=== PATIENT | male | born 1950 | race Caucasian/White ===

== ENCOUNTER 2016-10-13 04:37 | Inpatient (IN) ==
[2016-10-13] MEDS ORDERED: DUONEB (A & A) INH ONE (05:00)
[2016-10-13] MEDS ORDERED: ASPIRIN PO STA (05:02)
[2016-10-13] MEDS ORDERED: ALBUTEROL NEB INH ONE (05:03)
--- NOTE | 2016-10-13 05:10 | PROVIDER DOCUMENTATION ---
HPI-Respiratory General - General Chief Complaint: Shortness of Breath Stated Complaint: PNEUMONIA SX Time Seen by Provider: 10/13/16 04:54 Source: patient, family Allergies/Adverse Reactions: Patient Allergies Allergy/AdvReac Type Severity Reaction Status Date / Time No Known Allergies Allergy Verified 10/13/16 05:21 Home Medications: Home Medication List Medication Instructions Recorded Confirmed Last Taken Type Amlodipine Besylate 10 mg PO DAILY 08/15/13 10/13/16 10/12/16 History Fluoxetine HCl 2 cap PO DAILY 08/15/13 10/13/16 10/12/16 History Metoprolol Tartrate 12.5 mg PO BID 08/15/13 10/13/16 10/12/16 History Trazodone HCl 100 mg PO HS PRN 08/15/13 10/13/16 10/12/16 History Hydralazine HCl 25 mg PO TID 10/13/16 10/13/16 10/12/16 History - History of Present Illness-Resp Nature of Presenting Problem: pt states he has had a cough for about the last month that has been productive of sputum that has been clear to colored, however in the last week he has developed increasing SOB until tonight it became much worse. He has noticed that his breathing is worse laying down and better sitting up. He reports coughing up blood. No leg swelling. He reports right sided chest pain that radiates up to his shoulder and his neck nightly. No fever or chills. He quit smoking when he was 25 although he does chew tobacco. Review of Systems - Adult - REVIEW OF SYSTEMS - ADULT Constitutional: denies: chills, fever Eyes: denies: discharge Ears, Nose, Mouth & Throat: denies: ear pain, sinus problem, throat pain Cardiovascular: reports: chest pain, orthopnea. denies: edema, palpitations, syncope Respiratory: reports: cough, excessive sputum production, hemoptysis, shortness of breath, wheezing. denies: pleurisy Gastrointestinal: denies: abdominal pain, nausea, vomiting Genitourinary: reports: no symptoms reported Musculoskeletal: reports: no symptoms reported Integumentary: reports: no symptoms reported Neurological: reports: no symptoms reported Psychiatric: reports: no symptoms reported Endocrine: reports: no symptoms reported Hematologic/Lymphatic: reports: no symptoms reported Allergic/Immunologic: reports: no symptoms reported All Other Systems: Reviewed and Negative Past History - Adult - PAST MEDICAL HISTORY-ADULT Review of Records: reports: Old Records Reviewed, Nursing Assessment Review, Medications Reviewed, Social history reviewed & non-contributory. Major Childhood Illnesses: reports: denies history Cardiovascular: reports: HTN, hyperlipidemia Respiratory: reports: denies history Gastrointestinal: reports: denies history Obstetrical/Gynecological: reports: denies history Genitourinary: reports: kidney disease Musculoskeletal: reports: denies history Neurological: reports: denies history Psychiatric: reports: ptsd Endocrine/Immune: reports: cancer (skin) Other Conditions: reports: denies history - PRIOR SURGERIES/PROCEDURES Surgical/Procedure History: reports: reviewed, not pertinent - IMMUNIZATION STATUS Childhood Immunizations: See Nurse Assessment Flu Vaccine: See Nurse Assessment - FAMILY HISTORY Family History: reviewed, not pertinent - SOCIAL HISTORY Smoking: non-smoker, chew Living Situation: family Physical Exam-General - PHYSICAL EXAM-ADULT Initial Vital Signs Reviewed: Yes - CONSTITUTIONAL General Appearance: appears well, alert, mild distress - EYES Eyes: pink conjunctivae. negative: scleral icterus - HEAD, EARS, NOSE, MOUTH & THROAT HENMT: normocephalic/atraumatic, pharynx normal - NECK Neck: non-tender, full range of motion, supple, normal inspection - RESPIRATORY Respiratory: chest non-tender, no pleuratic chest pain, no respiratory distress , no accessory muscle use, wheezing. negative: lungs clear, normal breath sounds - CARDIOVASCULAR Cardiovascular: regular rate, rhythm, no edema, no murmur - GASTROINTESTINAL (ABDOMEN) Abdominal Exam: normal bowel sounds, non tender, soft, no organomegaly, no pulsatile mass - MUSCULOSKELETAL Back Exam: normal inspection, no CVA tenderness, no vertebral tenderness Extremity: non-tender, normal gait, normal inspection, no pedal edema, no calf tenderness - SKIN Integumentary: normal color, normal turgor, warm/dry - NEUROLOGIC Neurologic: grossly normal, no motor/sensory deficits - PSYCHIATRIC Psych/Mental Status: normal mood/affect, normal thought content, normal thought process, oriented x 3 Progress - PLAN OF CARE/RESULTS Progress/Plan/Lab Results: Vital Signs - 8 hr 10/13/16 05:09 Temperature 98.6 F Pulse Rate 83 Respiratory Rate 22 Blood Pressure 182/82 O2 Sat by Pulse Oximetry 82 L Laboratory Results - last 24 hr 10/13/16 10/13/16 10/13/16 05:00 05:00 05:00 WBC 14.17 H RBC 6.07 Hgb 16.0 Hct 49.5 MCV 81.5 MCH 26.4 L MCHC 32.3 L RDW Std Deviation 14.6 H Plt Count 248 MPV 11.3 H Immature Gran % (Auto) 0.4 Neut % (Auto) 78.7 H Lymph % (Auto) 12.7 L Morgan % (Auto) 7.2 Eos % (Auto) 0.7 Baso % (Auto) 0.3 Immature Gran # (Auto) 0.05 H Neut # (Auto) 11.16 H Lymph # (Auto) 1.80 Morgan # (Auto) 1.02 H Eos # (Auto) 0.10 Baso # (Auto) 0.04 PT INR PTT (Actin FS) D-Dimer 0.90 H Sodium 141 Potassium 4.4 Chloride 102 Carbon Dioxide 22 L Anion Gap 17 BUN 35 H Creatinine 2.7 H Estimated GFR/1.73 m2 24 BUN/Creatinine Ratio 13 Glucose 104 Calculated Osmolality 290 Calcium 9.1 Magnesium 2.1 Total Bilirubin 0.41 AST 20 ALT 14 Alkaline Phosphatase 80 Creatine Kinase 52 Troponin T Ceb-D-Tdfolmhltig Pept Total Protein 6.8 Albumin 3.9 Globulin 2.9 Albumin/Globulin Ratio 1.3 10/13/16 10/13/16 10/13/16 05:00 05:00 05:00 WBC RBC Hgb Hct MCV MCH MCHC RDW Std Deviation Plt Count MPV Immature Gran % (Auto) Neut % (Auto) Lymph % (Auto) Morgan % (Auto) Eos % (Auto) Baso % (Auto) Immature Gran # (Auto) Neut # (Auto) Lymph # (Auto) Morgan # (Auto) Eos # (Auto) Baso # (Auto) PT 11.0 INR 1.04 PTT (Actin FS) 26.8 D-Dimer Sodium Potassium Chloride Carbon Dioxide Anion Gap BUN Creatinine Estimated GFR/1.73 m2 BUN/Creatinine Ratio Glucose Calculated Osmolality Calcium Magnesium Total Bilirubin AST ALT Alkaline Phosphatase Creatine Kinase Troponin T 0.277 H Icv-P-Dpzqllbpwrf Pept 83340 H Total Protein Albumin Globulin Albumin/Globulin Ratio Orders Category Date Time Status Cardiac Monitoring DIRECTED Care 10/13/16 05:02 Active Oxygen Therapy- ED Nursing DIRECTED Care 10/13/16 05:02 Active Saline Loc NOW Care 10/13/16 05:02 Active CHEST-PORTABLE [RAD] Stat Exams 10/13/16 05:02 Completed CBC WITH ELECTRONIC DIFF [HEME] Stat Lab 10/13/16 05:00 Completed CK PROFILE [SP CHEM] Stat Lab 10/13/16 05:00 Completed COMPREHENSIVE METABOLIC PANEL [CHEM] Stat Lab 10/13/16 05:00 Completed D-DIMER [CHEM] Stat Lab 10/13/16 05:00 Completed MAGNESIUM [CHEM] Stat Lab 10/13/16 05:00 Completed PRO B-NATRIURETIC PEPTIDE Stat Lab 10/13/16 05:00 Completed PROTIME WITH INR [COAG] Stat Lab 10/13/16 05:00 Completed PTT [COAG] Stat Lab 10/13/16 05:00 Completed TROPONIN T Stat Lab 10/13/16 05:00 Completed Albuterol 2.5MG/Ipratrop 0.5MG [Duoneb (A & A)] Med 10/13/16 05:00 Discontinued 6 ml INH NOW ONE Albuterol [Albuterol Neb] Med 10/13/16 05:03 Discontinued 5 mg INH NOW ONE Aspirin Med 10/13/16 05:02 Discontinued 325 mg PO STAT STA Furosemide [Lasix] Med 10/13/16 05:18 Discontinued 40 mg IV NOW ONE Aerosol Treatments Routine Oth 10/13/16 05:00 Completed Aerosol Treatments Routine Oth 10/13/16 05:03 Completed Aerosol Treatments Stat Oth 10/13/16 05:00 Completed Aerosol Treatments Stat Oth 10/13/16 05:03 Completed BIPAP Stat Oth 10/13/16 05:18 Active EKG [EKG] Routine Ther 10/13/16 05:22 Draft Result Diagrams: 10/13/16 05:00 10/13/16 05:00 - REASSESSMENT Reassessment #1 Time Reassessed: 05:21 Status: improving - EKG 1 Time of EKG reading by physician:: 05:25 EKG Interpretation (*Must complete 3 of following elements*): Abnormal Rate: 74 Rhythm: sinus [place]: left QRS: LVH ST Wave: non-specific ST changes - XRAY 1 XRAY Study: Chest Impression: Abnormal (severe pulm edema) - CONSULTS/PCP/HOSPITALIST Notification #1 *Consult/PCP/Hospitalist*: [email or web address] Time Discussed: 06:20 Consult Disposition: Admit Departure - Departure Date of Disposition Decision: 10/13/16 Time of Disposition Decision: 06:20 DIAGNOSIS: Pneumonia Qualifiers: Pneumonia type: due to unspecified organism Laterality: bilateral Lung location : unspecified part of lung Qualified Code(s): J18.9 - Pneumonia, unspecified organism Congestive heart failure Qualifiers: Congestive heart failure type: unspecified congestive heart failure type Congestive heart failure chronicity: acute Qualified Code(s): I50.9 - Heart failure, unspecified Disposition: ADMITTED INPATIENT 09 Certified Medical Emergency: Emergent Condition: Critical Referrals and Follow-Ups: Kristan Patel [Primary Care Provider] - - Critical Care Note This patient required my direct & personal management of CC.: Yes Total Time (mins): 45 Critical Care Statement: This patient required my direct personal management to treat or rule out processes, the absence of which, could potentiallly result in sudden, clinically significant life or limb threatening deterioration. Attestation - Physician/ ARLEEN Attestation Patient care was provided by Advanced Practice Provider:: No The physician spent face to face time with patient:: Yes Advanced Practice Provider documentation review:: Supervising physician onsite and consulted in the evaluation and care of this patient. The physician did have a face to face encounter with the patient.
[2016-10-13] MEDS ORDERED: LASIX IV ONE (05:18)
[2016-10-13 05:23] LABS: MANUAL DIFF NEEDED? NO
[2016-10-13 05:30] LABS: BASO% 0.3 % (0.0-0.8); EOS% 0.7 % (0.0-10.0); HEMATOCRIT 49.5 % (42.0-52.0); IMM GRAN# 0.05 X1000 (0.0-0.04); IMM GRAN% 0.4 % (0.0-0.5); LYMPH% 12.7 % (20.5-51.1); MCH 26.4 PG (27-31); MCHC 32.3 g/dL (33-37); MCV 81.5 FL (81-99); MONO# 1.02 X1000 (0.11-0.59); MONO% 7.2 % (1.7-9.3); MPV 11.3 FL (7.4-10.4); NEUT% 78.7 % (42.2-75.2); PLT 248 X1000 (130-400); RBC 6.07 XMIL (4.7-6.1)
--- NOTE | 2016-10-13 05:39 | Diag Imaging Result Doc PS360 ---
EXAM: CHEST-PORTABLE HISTORY: sob TECHNIQUE: Portable AP COMPARISON: 08/17/2013 FINDINGS: There are diffuse bilateral infiltrates. Heart is mildly prominent. No pleural effusions identified. The lungs are well expanded. IMPRESSION: Bilateral infiltrates could represent congestive failure or pneumonia. Follow-up films recommended. Electronically signed by Bridger James 10/13/2016 5:36 AM
[2016-10-13 05:59] LABS: INR 1.04; PTT 26.8 Seconds (22.0-36.0)
[2016-10-13 06:06] LABS: ALBUMIN 3.9 g/dL (3.5-5.0); CALCIUM 9.1 mg/dL (8.8-10.2); MAGNESIUM 2.1 mg/dL (1.5-2.7); POTASSIUM 4.4 mmol/L (3.5-5.1); TOTAL BILIRUBIN 0.41 mg/dL (0.20-1.00); TOTAL PROTEIN 6.8 g/dL (6.3-8.3)
--- NOTE | 2016-10-13 06:09 | EKG Report ---
Test Performed on : 10/13/2016 05:22:59 AM Test Reason : Chest Pain Blood Pressure : / mmHG Vent. Rate : 074 BPM Atrial Rate : 074 BPM P-R Int : 152 ms QRS Dur : 072 ms QT Int : 452 ms P-R-T Axes : 050 -39 099 degrees QTc Int : 501 ms Normal sinus rhythm. Possible Left atrial enlargement Left axis deviation Left ventricular hypertrophy Inferior infarct , age undetermined ST \T\ T wave abnormality, consider anterolateral ischemia Prolonged QT Abnormal ECG No previous ECGs available Unconfirmed Result
[2016-10-13] MEDS ORDERED: ROCEPHIN 1 GM/NS 1 GM/50 ML IVPB IV ONE (06:24)
[2016-10-13] MEDS ORDERED: ZITHROMAX 500 MG/NS 500 MG/250 ML IVPB IV ONE (06:24)
[2016-10-13 07:44] LABS: ALLEN TEST YES; BE -4.1 mmoll (-3.0-3.0); BLOOD TYPE ARTERIAL; DRAW SITE R RADIAL; METHB 1.2 % (0.0-1.5); O2(CT) 20.9 mL/dL (15.0-23.0); PCO2(98.6) 41 mmHg (35-45); PO2(98.6) 64 mmHg (60-100); SAMPLE BLOOD; SAO2 96.3 % (95.0-100.0); pH(98.6) 7.33 (7.35-7.45)
[2016-10-13 07:45] LABS: MODALITY BI PAP
--- NOTE | 2016-10-13 08:32 | Diag Imaging Result Doc PS360 ---
EXAM: CT THORAX W/O CONTRAST HISTORY: pna, dense bilateral infiltrates TECHNIQUE: CT chest without contrast. Dose reduction protocol. COMPARISON: None. FINDINGS: There are small bilateral pleural effusions measuring approximately 2 cm posteriorly and inferiorly in the midline. The heart is mildly prominent. No thoracic aortic aneurysm. There are at least moderate coronary artery calcifications in the left anterior descending and circumflex arteries. There are small mediastinal lymph nodes. There are multifocal bilateral patchy infiltrates. There is also basilar atelectasis. No bronchiectasis. I do not identify a lung mass. Mild central vascular prominence. IMPRESSION: 1.Mild cardiomegaly with pleural effusions and pulmonary edema 2.Multifocal bilateral small patchy infiltrates 3.Moderate coronary artery calcifications Electronically signed by Bridger James 10/13/2016 8:29 AM
--- NOTE | 2016-10-13 09:42 | HISTORY AND PHYSICAL ---
PRIMARY CARE PHYSICIAN: [facility]. CHIEF COMPLAINT: Cough, hemoptysis. HISTORY OF PRESENT ILLNESS: Mr. Reed is a 65-year-old male with a history of hypertension, PTSD, CKD, who presents with 3 to 4 months of cough, which he has reported as dry up until about 1 week ago, when he started having sputum expectoration, fever, and chills, and yesterday started having mariano hemoptysis. He has also been reporting some pain in the right upper chest as well as right neck, radiating down to the right arm, which he believes is possible rotator cuff injury. He denies any overt ischemic-type chest pain, but he does report orthopnea, shortness of breath with exertion, and dry cough. He came to the ER today because of the mariano hemoptysis. He had a chest x-ray done, which showed dense bilateral infiltrates , consistent with pneumonia, his lab data was significant for leukocytosis and worsening renal failure, as well as a profoundly elevated proBNP and elevated troponin with normal CK. His EKG does show significant ST abnormalities in the anterior and lateral leads, possibly a Wellens' sign. It was also noted that when he got to the ER, he was hypoxic, requiring BiPAP therapy. As such, he is going to be admitted to the ICU for hypoxic respiratory failure, pneumonia, and possibly congestive heart failure. PAST MEDICAL HISTORY: 1. Hypertension. 2. Fatty tumor of the right kidney, status post nephrectomy. 3. CKD, baseline stage unknown. 4. PTSD. 5. Profoundly hard of hearing. PAST SURGICAL HISTORY: He has had a right nephrectomy, right retina repair, and skin cancer removal from his nose. SOCIAL HISTORY: The patient quit smoking some time ago when he was about 25, so 40 years ago. He denies alcohol or drug use. He is . His is at the bedside. He is a . FAMILY HISTORY: Mother from dementia-related disease. Father with congestive heart failure. It is also significant to note that he had a twin brother who from an [place] at 47 years old. REVIEW OF SYSTEMS: A 14-point review of systems was obtained and found to be negative with the exception of the HPI. ALLERGIES: No known drug allergies. HOME MEDICATIONS: Norvasc 10 mg daily, fluoxetine 40 mg daily, hydralazine 25 mg t.i.d., metoprolol tartrate 12.5 mg p.o. b.i.d., trazodone 100 mg p.o. at bedtime. PHYSICAL EXAMINATION: VITAL SIGNS: Blood pressure is 150/80, heart rate 88, respiratory rate is 19, O2 saturation 99% on BiPAP therapy, temperature is 98.6 degrees. GENERAL: This is a chronically ill and disheveled-appearing, 65-year-old male, lying in hospital bed in no acute distress. NEUROLOGIC: The patient is awake and alert. He follows commands. Exam is nonfocal. HEENT: Head is atraumatic, normocephalic. His pupils are equal, round, and reactive to light. Oral mucosa is moist. His trachea is midline. There is no JVD. CHEST: Dense crackles bilaterally. Diminished air entry throughout. CARDIOVASCULAR: Regular rate and rhythm. S1, S2 is noted. No appreciable murmur. GASTROINTESTINAL: Soft, nondistended, nontender. Bowel sounds are active. EXTREMITIES: No edema. Pulses 1+ bilaterally. DIAGNOSTIC DATA: Chest x-ray shows dense bilateral infiltrates. EKG shows sinus rhythm with T- wave inversion, possible Wellens' sign in the anterior and lateral leads. There is also electrocardiographic evidence of LVH. LABORATORY DATA: WBC 14.17, hemoglobin 16, hematocrit 49.5, platelet count is 248. PT 11, INR 1.04. D-dimer 0.9. ABG on 40% BiPAP: PH 7.33, CO2 of 41, O2 of 64, bicarb 21.6. Sodium 141, potassium 4.4, chloride 102, CO2 of 22, anion gap 17, BUN 35, creatinine 2.7, glucose 104. Magnesium 2.1. Total bilirubin 0.41, AST 20, ALT 14, alkaline phosphatase 80. CK 52, troponin 0.277. ProBNP 15,438. Albumin 3.9. TSH 3.24. ASSESSMENT AND PLAN: 1. Acute hypoxic respiratory failure, likely secondary to his bilateral pneumonia, but would also consider a combination of pneumonia and heart failure. He is on bilevel positive airway pressure and has been given intravenous diuresis in the emergency room. He is going to be transferred to the intensive care unit, where we will continue with bilevel positive airway pressure, antibiotics, breathing treatments, and aggressive pulmonary toilet. We will recheck a chest x-ray in the morning. 2. Community-acquired pneumonia. Blood cultures and lactic acid have been obtained. Antibiotics have appropriately been initiated, and will monitor his respiratory status closely. 3. Acute kidney injury on chronic kidney disease. Creatinine 2.7. We are going to consult Dr. Hoang, check urine electrolytes, and get a renal ultrasound given the fact that he has only got 1 kidney. 4. Elevated troponin and proBNP/questionable heart failure. The patient has abnormal electrocardiogram, profoundly elevated proBNP. Although he does have chronic kidney disease, we need to consider congestive heart failure. He has cardiomegaly on chest x -ray. We are going to check an echocardiogram, and trend his enzymes. He may well indeed need Cardiology consults, but if his enzymes are trending down or negative, we could probably defer this to outpatient. We will make sure he is on aspirin, and he will likely need statin as well. 5. Hemoptysis, likely secondary to his pneumonia. We are going to check a chest CT for better evaluation of the lung parenchyma, and continue treatment as outlined above. 6. Hypertension, chronic and stable. Continue his home medications. 7. Deep vein thrombosis prophylaxis will be provided with sequential compression devices and TEDs given his mariano hemoptysis. Further recommendations to follow. Dictated by ELIZABETH Garber for Alex Rollins MD cc: ELIZABETH Garber MD I have seen and examined the patient and I agree with the above evaluation and plan. Acute hypoxemic respiratory failure 2/2 to pneumonia. [facility]
[2016-10-13 10:45] LABS: URINE CULTURE NEEDED? NO; URINE MICRO REVIEW NEEDED? NO; URINE SOURCE CLEAN CATCH
[2016-10-13 10:53] LABS: BILIRUBIN URINE NEGATIVE (NEGATIVE); BLOOD URINE NEGATIVE (NEGATIVE); COLOR STRAW; GLUCOSE URINE NEGATIVE (NEGATIVE); LEUKOCYTES URINE NEGATIVE (NEGATIVE); NITRITE URINE NEGATIVE (NEGATIVE); PROTEIN URINE 50 mg/dL (NEGATIVE); SP GRAVITY URINE 1.006; TURBIDITY URINE CLEAR (CLEAR); UROBILINOGEN URINE NORMAL (NORMAL)
[2016-10-13 10:54] LABS: UR EPITHELIAL CELLS <10 /HPF (<10); URINE BACTERIA NEGATIVE /HPF; URINE RBC <10 /HPF (<10); URINE WBC <10 /HPF (<10)
[2016-10-13 11:00] LABS: UR CREAT RANDOM 31.5 mg/dL (14-26)
[2016-10-13] MEDS ORDERED: DESYREL PO PRN (12:02)
[2016-10-13] MEDS: DUONEB (A & A) INH SCH ×3 (12:02→21:30)
[2016-10-13] MEDS ORDERED: ROCEPHIN 1 GM/NS 1 GM/50 ML IVPB IV SCH (12:02)
[2016-10-13] MEDS ORDERED: DUONEB (A & A) INH PRN (12:02)
--- NOTE | 2016-10-13 12:54 | Diag Imaging Result Doc PS360 ---
EXAM: US RENAL 1 (LIMITED)-LEFT HISTORY: daryl on ckd TECHNIQUE: Renal ultrasound COMMENT: The right kidney is surgically absent. The left measures 11.9 x 6 x 6.4 cm. The urinary bladder is not distended. The prostate is somewhat prominent measuring 6.7 x 5.1 x 5.3 cm. There is a exophytic cyst in the lower pole of the left kidney measuring 2.5 cm in diameter. There is a parapelvic cyst in the lower portion of the kidney measuring 1.9 cm and a small cortical cyst is seen anteriorly measuring less than a centimeter in diameter. There is an upper pole cyst measuring 3.3 cm. The left renal cortex is hyperechoic. There is an exophytic hypoechoic nodule arising from the lower pole of the left kidney measuring 1.9 cm. This was probably the hyperdense structure seen on the CT of 04/09/2014 seen posteriorly over the lower pole. Follow-up CT may be desirable. IMPRESSION: Medical renal disease with multiple cysts and a nonspecific hypoechoic lesion over the lower pole as described above. Advise further evaluation with CT and/or MRI. Electronically signed by Mustapha Kelly 10/13/2016 12:51 PM
[2016-10-13] MEDS: APRESOLINE PO SCH ×3 (13:00→16:31)
[2016-10-13] MEDS: NORVASC PO SCH (13:29)
[2016-10-13] MEDS: LOPRESSOR PO SCH ×2 (13:29→22:24)
[2016-10-13] MEDS: PROZAC PO SCH (14:02)
[2016-10-13] MEDS: LASIX IV SCH (16:30)
--- NOTE | 2016-10-13 16:47 | CONSULTATION ---
DATE OF CONSULTATION: 10/13/2016 REASON FOR ADMISSION: Cough with hemoptysis and shortness of breath x3 weeks. REASON FOR CONSULTATION: Acute kidney injury on chronic kidney disease, stage 3. CONSULTING PHYSICIAN: Alex Rollins MD HISTORY OF PRESENT ILLNESS: Mr. Reed is a 65-year-old white male who has not been seen by our service in the past. He is a history of hypertension, posttraumatic stress disease, CKD stage 4, cough times 2-3 weeks, with new onset of hemoptysis with fever and chills since yesterday. He states that he is followed at the [facility]. He has a history of hypertension and congestive heart failure. He also has a history of a right nephrectomy from [address] Baig secondary to a tumor on his right kidney. He is followed at the [facility] and states that his last creatinine 3 weeks ago was 2.6. His creatinine today is 2.7 with an estimated GFR of 23%. Patient states that he has had no difficulty urinating. He has good stream. He denies any nausea, vomiting, or diarrhea, though he states he does get gagged when he is coughing for a long period of time. He has pain on the right side of his upper chest and right neck that radiates down the right arm. He thinks that this also secondary to having a rotator cuff injury in the past. He does report orthopnea with exertion. His chest x-ray indicates dense bilateral infiltrates consistent with bilateral pneumonia. He had a CT of the chest without contrast indicating cardiomegaly, pleural effusions with pulmonary edema, bilateral patchy infiltrates, small with coronary artery calcification noted. EKG did show significant ST abnormalities with an elevated troponin. Upon arrival to the [facility]'s Emergency Department, he was hypoxic with a low saturation, at which time he was placed on BiPAP therapy. He has now been converted over to a 50% Ventimask. Due to his hypoxia, bilateral pneumonia, and his creatinine, patient is being admitted to ICU with respiratory failure, pneumonia and possible congestive heart failure. He was already given Lasix 40 mg at 5 a.m. this morning. He has not been given any since. He states that he has not voided in the last several hours. 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 Hypertension. Chronic kidney disease stage 4. Baseline creatinine according to the patient and his is [facility] made of GFR of 23%. He is profoundly hard of hearing and defers to his for most questions. He does have PTSD. PREVIOUS SURGICAL HISTORY: Right nephrectomy 2010. Right retina repair. Skin cancer removal from his nose. SOCIAL HISTORY: He is . He quit smoking greater than 40 years. Denies any alcohol or illicit drug use. He is a and is followed by the [facility] with Dr. Theodora Patel. FAMILY HISTORY: Mother from dementia with related disease. Father had congestive heart failure. He has a twin brother who from an [place] at 47 years old. No renal disease in the family. CURRENT ALLERGIES: No known drug allergies. HOME MEDICATIONS: Norvasc. Fluoxetine. Hydralazine. Metoprolol tartrate. Trazodone. He does take Tylenol over the counter, states that he avoids NSAIDs. LABORATORY: Sodium is 141, potassium 4.4, chloride 102, CO2 22, BUN 35, creatinine 2.7, glucose 104. Anion gap is 17, calcium 9.1, albumin 3.9, magnesium 2.1. White count 14.17, hemoglobin 16, hematocrit 49.5, with a platelet count of 248,000. PT of 11, INR 1.04, PTT 268 , D-dimer 0.90. TSH 3.2. Positive troponin. Blood culture pending. Patient had urine electrolytes indicating a FENa score of 5.96%. IMAGING: Renal ultrasound indicates the right kidney is absent. Left kidney measures 11.9, with multiple renal cysts and hyperechoic lesion noted in the left lower pole. Chest x-ray on admission shows infiltrates with CHF versus pneumonia, and CT of the chest without contrast as indicated above. REVIEW OF SYSTEMS: Review of systems x10 with pertinent positives listed above in the HPI. PHYSICAL EXAMINATION: General: This is a 65-year-old white male. He is in no acute distress. Vital Signs: Temperature 98.6 degrees, blood pressure 146/87, heart rate 73, respirations 20. He is on 50% Ventimask. Recorded saturation of 96%. Skin: Warm and dry. He appears chronically ill. He is lying with the head of the bed elevated. HEENT: Normocephalic, atraumatic. Pupils equal, reactive to light. Conjunctivae is pale. Mucous membranes moist. Poor dentition. Patient is hard of hearing. Neck: Trachea is midline. No JVD. Cardiovascular : He is regular rate and rhythm on the monitor. No appreciable murmur or gallop. Lungs: He has crackles to the bilateral bases. He remains on 50% Ventimask. Equal excursion. Abdomen: Soft , nontender. Slightly distended. Positive bowel sounds. Genitourinary: Not inspected. Minimal void since admission. Extremities: No edema. No clubbing or cyanosis. Bilateral pulses. Neurological: Alert and oriented x3. ASSESSMENT AND PLAN: 1. Acute kidney injury. The patient is actually at his historical baseline according to the patient and his . Baseline creatinine of 2.6, estimated GFR of 23%. BUN is stable. FENa score indicates that patient is not dry. Renal ultrasound does indicate absent right kidney secondary to nephrectomy in 2009. We will recheck labs in the a.m. 2. Acute hypoxic respiratory failure. Patient continues with indications of bilateral pneumonia. He has been given Rocephin 1 g. No indications for renal dosing. He does continue with bilateral crackles. We will go ahead and dose him with Lasix 80 mg IV q.12 hours secondary to his renal status. We will continue to measure accurate urine output. 3. Electrolytes. These are stable. 4. Acid-base balance. This is stable with a mild anion gap acidosis secondary to his respiratory distress. 5. Anemia. Patient is in target. 6. Hemoptysis, more than likely secondary to his pneumonia. His INR is stable. Chest CT indicates bilateral pneumonia with some pleural effusions and pulmonary edema. 7. Hypertension. This remains stable. 8. Anemia. 9. Pulmonary edema. Again, patient remains on 50% Ventimask. Again, we will address his hypoxic respiratory failure with extra dose of Lasix to be given b.i.d. starting this evening. I would like to thank you for allowing us to follow with this patient. Dictated by ELIZABETH Castellanos for Zeke Hoang MD Data reviewed, discussed with Liana Jerome on 10/13/16. I agree with the above assessment and plan of care. cc: ELIZABETH Castellanos MD [facility]
[2016-10-14] MEDS: DUONEB (A & A) INH SCH ×4 (03:30→21:18)
--- NOTE | 2016-10-14 03:43 | ECHO REPORT ---
ORDER DATE: 10/13/2016 MEASUREMENTS: Left ventricular end-diastolic diameter 6.4, and systolic diameter 4.7. Posterior wall thickness 1.1, septal thickness 1.3, left atrium 3.8, aortic root 4.1. SUMMARY: 1. Technically difficult study due to limited acoustic window quality. 2. Aortic valve is trileaflet, and opens adequately on 2-dimensional images. Peak gradient across the aortic valve is less than 10 mmHg. The aortic root is mildly enlarged. Mitral, tricuspid, and pulmonic valves are without structural abnormality, with mild mitral regurgitation and trace tricuspid regurgitation. The estimated systolic PA pressure by Doppler is 30-35 mmHg. 3. Mild left ventricular enlargement, with mild concentric left hypertrophy is demonstrated. Estimated left ejection fraction is 35-40%. There is akinesis of the apical septum and apex. Left atrium is borderline enlarged. Right atrium and right ventricle are normal in size, with normal right ventricular systolic function. 4. No pericardial effusion. 5. Inferior vena cava not well-demonstrated. CONCLUSIONS: 1. Technically difficult study. 2. Mild mitral regurgitation. 3. Trace tricuspid regurgitation, with estimated systolic PA pressure 30-35 mmHg. 4. Mild left ventricular enlargement, with mild concentric left hypertrophy, and estimated left ejection fraction of 35-40%. 5. Akinesis of apical septum and apex of the left ventricle. 6. Borderline left atrial enlargement. 7. Mild aortic root enlargement. cc: MD Corwin Beatty CRNP
[2016-10-14] MEDS: LASIX IV SCH ×2 (03:45→16:25)
[2016-10-14 05:42] LABS: HEMATOCRIT 49.5 % (42.0-52.0); MCH 26.2 PG (27-31); MCHC 32.3 g/dL (33-37); MPV 11.3 FL (7.4-10.4); RBC 6.11 XMIL (4.7-6.1)
[2016-10-14 06:02] LABS: AGAP 17; ALBUMIN 3.8 g/dL (3.5-5.0); BUN 37 mg/dL (8-22); CALCIUM 9.1 mg/dL (8.8-10.2); CHLORIDE 97 mmol/L (98-107); COSMO 285; HDL 44 mg/dL (35-55); LDL 122 mg/dL; POTASSIUM 4.2 mmol/L (3.5-5.1); SODIUM 138 mmol/L (136-145); TCO2 24 mmol/L (25-35); TRIGLYCERIDES 124 mg/dL (39-160); VLDL 25 mg/dL
[2016-10-14] MEDS: NORVASC PO SCH (09:03)
[2016-10-14] MEDS: APRESOLINE PO SCH ×3 (09:03→17:17)
[2016-10-14] MEDS: LOPRESSOR PO SCH ×2 (09:03→20:42)
[2016-10-14] MEDS: PROZAC PO SCH (09:04)
[2016-10-14] MEDS ORDERED: LOVENOX SUBQ SCH (09:15)
[2016-10-14] MEDS: ZITHROMAX 500 MG/NS 500 MG/250 ML IVPB IV SCH (09:30)
[2016-10-14] MEDS: CRESTOR PO SCH (09:37)
--- NOTE | 2016-10-14 10:55 | PROGRESS NOTE ---
DATE: 10/14/2016 SUBJECTIVE: Today, Mr. Reed referred to be doing a lot better. Shortness of breath is improved, and he also denies any chest pain. Of note, Mr. Reed got admitted yesterday because of cough, shortness of breath, and also chest and cervical pain that radiates to the right hand intermittently especially on exertion. OBJECTIVE: Vital Signs: Blood pressure is 137/84, pulse of 67, respiration is 24. Temperature 98.5 degrees.General: Mr. Reed is a 65-year-old male. He is in bed and does not seem to be in any remarkable distress. HEENT: Mucosa is pink and moist. Anicteric. Acyanotic. Neck: Supple. No JVD. Chest: Good air entry bilaterally. There is a few bibasilar crepitations. Cardiovascular: Regular rate and rhythm. There is no murmurs no rubs, no gallops. Abdomen: Soft is distended but nontender. Bowel sounds seems slightly hypoactive. Extremities: No pedal edema. SLUMBER ROOM ATTENDANT: Patient is awake, alert, oriented x4. There is no focal neurological deficit except the patient is hard of hearing. LABORATORY DATA: WBC 13.10, hemoglobin is 16.0, platelet count of 225,000. Chemistry is reviewed. Sodium is 138, potassium is 4.3, chloride 97, bicarb is 24. Creatinine is 2.8. Troponins have been going and is now 0.565. IMAGING STUDIES: A chest x-ray which was done yesterday shows bilateral infiltrate could represent congestive failure or pneumonia. A CT scan of the chest done yesterday shows mild cardiomegaly with pleural effusions and pulmonary edema. Multifocal bilateral small patchy infiltrates. Moderate coronary calcifications. An echocardiogram which was done shows an ejection fraction of 35%-40%. Mild left ventricular enlargement and mild concentric at hypertrophic cardiomyopathy. There is hypokinesis of the apical septum and apex of the left ventricle. The renal ultrasound which was done also yesterday shows medical renal disease. An echocardiogram which was done yesterday shows sinus rhythm with left axis deviation and a poor progression of the R wave. There are some T-waves inversion in the lateral leads. ASSESSMENT: 1. Acute hypoxemic respiratory failure secondary to pulmonary edema and bilateral patchy infiltrate consistent with possible pneumonia. 2. Congestive heart failure with ejection fraction 35%-40% and also abnormal wall movement on echocardiogram which alludes to the possibility of underlying coronary artery disease. 3. Non-STEMI. Patient has atypical chest pain. EKG is abnormal and troponins have been going up. He has already been evaluated by Cardiology. There is a plan to do a left heart catheterization when his pulmonary status is improved. 4. Coronary chronic kidney disease, stage 4. I think this is probably progression of his kidney disease. In 2013, he had an EF of 1.6. He still makes adequate urine. Nephrology has been consulted. MEDICATIONS: 1. Amlodipine 10 mg daily. 2. Aspirin 81 mg daily. 3. Erythromycin 215. 4. Ceftriaxone. 1 g Q 24. 5. Lovenox 100 mg daily. 6. Lovenox 80 mg IV q.12. 7. Hydralazine 25 mg 3 times per day. 8. Metoprolol 12.5 b.i.d. 9. Crestor 40 mg daily. 10. In general, I think is relatively stable. He seems to be slowly improving from his lung symptoms which I think is a combination of congestive pulmonary edema from congestive heart failure with superimposed infectious disease. Will continue with the antibiotics. We will also continue with his heart medications. I think their long-term plan is to improve his pulmonary symptoms to the point where he will be able to tolerate the left heart catheterization. The patient is being followed by both Nephrology and Cardiology. cc: Alex Rollins MD MTDScott
[2016-10-14] MEDS: ROCEPHIN 1 GM in NS 50 ML IV SCH (13:43)
--- NOTE | 2016-10-14 14:18 | CONSULTATION ---
DATE OF CONSULTATION: 10/14/2016 HISTORY OF PRESENT ILLNESS: Mr. Shay Reed is a 65-year-old gentleman who is admitted with shortness of breath, cough, and hemoptysis. CT scan revealed pulmonary edema, pleural effusion, and patchy infiltrates. Patient has abnormal troponin and renal insufficiency. Cardiology was consulted. He also presented with having chest pain, right-sided with some radiation to the neck and down the right arm. He became more short of breath and came to the hospital and was admitted. He has been started on IV Lasix and IV antibiotics. The patient's states that he has had a stress test last year at the [facility] in [place] and was told the test was unremarkable. No previous cardiac history is known. Over the last 2 months he has noticed interscapular pain with shortness of breath on exertion and of late he had noticed some right-sided chest discomfort. He also has had left-sided chest discomfort. There are no palpitations. There is no dizziness or syncope. REVIEW OF SYSTEMS: A 14-point review of system was done.Respiratory system: As above. Cardiovascular system: As above. System: There is no dysuria or hematuria. Endocrine system: Stable. Central nervous system: No focal weakness to suggest CVA or TIA. PAST MEDICAL HISTORY: 1. Status post nephrectomy secondary to tumor. 2. Solitary kidney. 3. Chronic renal insufficiency stage 4; baseline creatinine 2.6, GFR 23%. 4. Hard of hearing. 5. Posttraumatic stress disorder. 6. Right retinal repair. 7. He quit smoking 40 years ago. 8. Hypertension. PRIMARY CARE PHYSICIAN: 1. He is followed by Dr. Patel at the [facility]. HOME MEDICATIONS: Include metoprolol 12.5 mg p.o. b.i.d., fluoxetine 2, trazodone 100, amlodipine 10, hydralazine 25 mg p.o. t.i.d. ALLERGIES: He is not known to be allergic to any medication. PHYSICAL EXAMINATION: Vital signs: Blood pressure was 137/84. Cardiovascular System: Normal jugular venous pressure. First and second heart sounds were heard. There is no S3 gallop. Respiratory System: Bibasilar inspiratory crepitations. Abdomen: Soft, nontender. There was no guarding or rigidity. Bowel sounds were heard. Central nervous system: Alert. Was moving as extremities. Detailed central nervous system examination not performed. Extremities: Peripheral pulses noted. No edema. LABORATORY EXAMINATION: Sodium 138, potassium 4.2, BUN 37, creatinine 2.8. Troponin baseline 0.271. Subsequent troponin 0.370, 0.565. Hematology: WBC 13.10, hemoglobin 16, hematocrit 49, platelet count of 225,000. CT scan of his chest revealed cardiomegaly with pleural effusions and pulmonary edema with multifocal bilateral patchy infiltrates, moderate coronary calcification in the left anterior descending and circumflex areas. Echocardiogram revealed ejection fraction of 35 to 40%. Akinesis of apical septum and the left ventricular apex. ASSESSMENT AND PLAN: Mr. Sahy Reed is a 65-year-old gentleman with a history of chronic renal insufficiency status post nephrectomy in 2009, hypertension, posttraumatic stress disorder, hard of hearing, is admitted with shortness of breath, cough, and pulmonary edema. Has also had hemoptysis. From a cardiac standpoint, the patient's said last year they had a stress test done at the [facility] in [place] and per her the stress test was unremarkable. He has been having interscapular exertion chest pain for the last 2-3 months. In addition, presented with chest pain and pulmonary edema as well. 1. Currently he is being diuresed with the Lasix 80 mg IV twice daily. He has been started on aspirin and his home medications of hydralazine and metoprolol. 2. Hypercholesterolemia. He is on Crestor 40 mg a day. 3. He has ongoing chest discomfort and his troponin has worsened. However, in the setting of renal insufficiency, this may or may not be a non-Q-wave myocardial infarction. Regardless, I suspect this is secondary to coronary artery disease, LV dysfunction, and we will plan for a left heart catheterization when he is euvolemic. 4. He has renal insufficiency. Dr. Hoang has been consulted. 5. Since his admission he has symptomatically improved. 6. He had an elevated white count and likely infiltrate/pneumonia may be coexistent and he has been started on ceftriaxone and Zithromax. I have not made any other changes to his medications. Thank you for the consult. We will follow hospital course. cc: Devante Gonsalves MD
--- NOTE | 2016-10-14 19:51 | PROGRESS NOTE ---
DATE: 10/14/2016 SUBJECTIVE: He is feeling somewhat better this morning, but he is still requiring high-flow oxygen using a mask. No nausea or vomiting. OBJECTIVE: Vital Signs: Blood pressure 137/78, heart rate 70, respiration 24, afebrile. Intake and output are incomplete. General: Elderly man sitting at 45 degrees in no distress. Skin: Warm and dry. Conjunctivae are pink. Pupils are equal. Oropharynx is dry with poor dentition. Neck: Supple. Trachea is midline. No jugular venous distention or hepatojugular reflux. Heart: Regular with S4 gallop. Lungs: Have equal breath sounds. No crackles or wheezes anteriorly. Abdomen: Soft, nontender. Bowel sounds are present. Extremities: Have no edema, clubbing, or cyanosis. LABORATORY DATA: Sodium 138, potassium 4.2, chloride 97, bicarbonate 24, BUN 37, creatinine 2.8. IMPRESSION: Chronic kidney disease. He has a solitary kidney with history of multiple renal cysts that are possibly simply related to chronic kidney disease as opposed to polycystic kidney disease. There is also a possible 1.9 cm lesion on the ultrasound which may need to be followed up. It is likely that his kidney function will not improved from his current level. He is therefore some risk if he is to undergo a left heart catheterization. Otherwise, he has no electrolyte or acid-base abnormalities that need to be addressed. We will follow. His medications have been reviewed and no changes are required at this time from my perspective. We are giving Lasix 80 mg b.i.d. and we will follow his response. cc: Zeke Hoang MD
[2016-10-14] MEDS: MIRALAX PO SCH (20:42)
[2016-10-15] MEDS: DUONEB (A & A) INH SCH ×4 (03:18→21:00)
[2016-10-15] MEDS: LASIX IV SCH (05:00)
[2016-10-15 06:39] LABS: HEMATOCRIT 51.2 % (42.0-52.0); HEMOGLOBIN 16.7 g/dL (14.0-18.0); MCH 26.3 PG (27-31); MCHC 32.6 g/dL (33-37); MCV 80.5 FL (81-99); MPV 11.4 FL (7.4-10.4); RBC 6.36 XMIL (4.7-6.1)
[2016-10-15 07:22] LABS: ALBUMIN 3.8 g/dL (3.5-5.0); CALCIUM 9.7 mg/dL (8.8-10.2); POTASSIUM 3.9 mmol/L (3.5-5.1)
[2016-10-15] MEDS: MIRALAX PO SCH ×2 (08:00→21:37)
[2016-10-15] MEDS: PROZAC PO SCH (08:01)
[2016-10-15] MEDS: ZITHROMAX 500 MG/NS 500 MG/250 ML IVPB IV SCH (08:01)
[2016-10-15] MEDS: NORVASC PO SCH (08:01)
[2016-10-15] MEDS: ASPIRIN PO SCH (08:01)
[2016-10-15] MEDS: CRESTOR PO SCH (08:02)
[2016-10-15] MEDS: LOPRESSOR PO SCH ×2 (08:02→21:37)
[2016-10-15] MEDS: APRESOLINE PO SCH ×3 (08:02→16:14)
[2016-10-15] MEDS ORDERED: LOVENOX SUBQ SCH (09:00)
--- NOTE | 2016-10-15 11:06 | PROGRESS NOTE ---
DATE: 10/15/2016 Today Mr. Reed refers to be doing a lot better. Breathing is improved and no more shortness of breath. No chest pain. OBJECTIVELY: Vitals: Blood pressure is 140/90, pulse of 71, respirations 23, temperature 98.7 degrees. General: Mr. Reed is a 65-year-old male. He is in bed, does not seem to be in any distress. HEENT: Mucosa is pink and moist. Anicteric. Acyanotic. Neck: Supple. Chest: Air entry is bilaterally reduced. There is some bilateral posterior crepitations. Cardiovascular: Regular rate and rhythm. There are no murmurs. Abdomen: Soft , nontender. Extremities: No pedal edema. HOT BREAD BAKER: Patient is awake, alert and oriented x4. No focal neurological deficit. LABORATORY DATA: WBC is down to 12.69. Hemoglobin is 16.7, platelet count of 255,000. Chemistry is reviewed. Creatinine is 2.8, which is pretty much stable since admission. Urine output of 3085. Patient has a negative balance of 2380. ASSESSMENT: 1. Acute hypoxemic respiratory failure on presentation, secondary to pulmonary edema and bilateral patchy infiltrate suggestive of possible pneumonia. clinically improving 2. Congestive heart failure. Ejection fraction of 35-40% with abnormal wall movement suggestive of possible underlying coronary artery disease. 3. Elevated troponins on admission likely due to non STEMI. 4. Chronic kidney disease. The creatinine continues to be relatively stable. Patient had adequate urine output 5. 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 So in general Mr. Reed is clinically stable. We are going to transfer him from the ICU to regular floor. We will continue with gentle diuresis and complete the course of the antibiotics. Will be pending further evaluation from Cardiology as to when the left heart catheterization will be done. cc: Alex Rollins MD MTDScott
[2016-10-15] MEDS: ROCEPHIN 1 GM in NS 50 ML IV SCH (13:19)
--- NOTE | 2016-10-15 13:58 | PROGRESS NOTE ---
DATE: 10/15/2016 SUBJECTIVE: He is feeling fine today. Shortness of breath is some better, and he is using nasal cannula. No nausea or vomiting. OBJECTIVE: Vital Signs: Blood pressure 112/71, heart rate 67, respirations 20, afebrile. Intake 1.8 L. Output 3.1 L. PHYSICAL EXAMINATION: No acute distress. Skin is warm and dry. Conjunctivae are pink. Neck veins are not distended. Heart is regular without gallops or murmurs. Lungs have equal breath sounds. No crackles or wheezes. Abdomen soft, nontender. Bowel sounds present. Extremities have no edema, clubbing, or cyanosis. IMPRESSION: 1. Chronic kidney disease, stage 4. Kidney function is unchanged. Medication review discloses no changes that are required. 2. Volume status. He is receiving Lasix 80 mg IV q.12 hours. He has diuresed nicely and does not really have evidence of pulmonary edema or volume overload on exam. He had a chest CT performed on 10/13/2016 which did describe pulmonary edema. I will change his dosing to 40 mg p.o. once daily. cc: Zeke Hoang MD
[2016-10-15] MEDS ORDERED: SODIUM BICARBONATE 8.4% 150 MEQ in D5W 1,000 ML IV SCH (20:00)
[2016-10-15] MEDS: MUCOMYST 20% PO SCH (21:00)
[2016-10-16] MEDS: DUONEB (A & A) INH SCH ×4 (03:18→15:41)
[2016-10-16 05:55] LABS: HEMOGLOBIN 15.8 g/dL (14.0-18.0); INR 1.07; MCH 27.1 PG (27-31); MCHC 32.9 g/dL (33-37); MCV 82.2 FL (81-99); MPV 10.7 FL (7.4-10.4); PROTIME 11.3 Seconds (9.2-11.7); RBC 5.84 XMIL (4.7-6.1)
[2016-10-16 06:03] LABS: ALBUMIN 3.3 g/dL (3.5-5.0); CALCIUM 8.8 mg/dL (8.8-10.2); POTASSIUM 4.1 mmol/L (3.5-5.1)
[2016-10-16] MEDS: MUCOMYST 20% PO SCH ×2 (07:33→13:55)
--- NOTE | 2016-10-16 08:31 | Diag Imaging Result Doc PS360 ---
EXAM: CHEST-2 VIEWS HISTORY: dyspnea TECHNIQUE: 10/13/2016 COMPARISON: None. FINDINGS: Interval clearing of the bilateral infiltrates. There are only tiny infiltrates which remain posteriorly in the lower lobes. The heart is not enlarged. The vessels are not distended. No pleural effusions. IMPRESSION: Marked interval improvement. Electronically signed by Bridger James 10/16/2016 8:29 AM
[2016-10-16] MEDS ORDERED: LASIX PO SCH (09:00)
[2016-10-16] MEDS ORDERED: MUCOMYST 20% PO ONE (09:04)
[2016-10-16] MEDS: ZITHROMAX 500 MG/NS 500 MG/250 ML IVPB IV SCH (09:30)
[2016-10-16] MEDS: LOPRESSOR PO SCH (09:32)
[2016-10-16] MEDS ORDERED: HEPARIN 1000 UNITS/NS 2,000 UNIT/1,000 ML IV.SOLN ONE (10:53)
--- NOTE | 2016-10-16 11:27 | PROGRESS NOTE ---
DATE: 10/16/2016 SUBJECTIVE: He is awaiting left heart catheterization today. No pain. No shortness of breath. OBJECTIVE: Vital Signs: Blood pressure 133/87, heart rate 71, respirations 17, afebrile. General: He is in no acute distress. Skin: Warm and dry. Eyes: Conjunctivae are pink. Neck: Neck veins are not appreciated. Heart: Regular without gallops. Lungs: Have equal breath sounds. No crackles. Abdomen: Soft, nontender. Bowel sounds present. Extremities: Have no edema, clubbing or cyanosis. IMPRESSION: 1. Chronic kidney disease stage IV. At baseline. He was counseled again regarding the risk of intravenous contrast related to left heart catheterization. He has received Mucomyst and intravenous bicarbonate. We will observe his renal function following his procedure. 2. Hypertension in target. cc: Zeke Hoang MD
[2016-10-16] MEDS ORDERED: ANESTHESIA PB SET 88 IN 5742 ONE (11:49)
[2016-10-16] MEDS ORDERED: DEMEROL ONE (11:49)
[2016-10-16] MEDS ORDERED: NS 1,000 ML ONE (11:49)
[2016-10-16] MEDS ORDERED: NITROGLYCERIN ONE (11:49)
[2016-10-16] MEDS ORDERED: VERSED ONE (11:49)
[2016-10-16] MEDS ORDERED: MAALOX PLUS LIQUID PO PRN (13:22)
[2016-10-16] MEDS: APRESOLINE PO SCH ×3 (13:53→17:03)
[2016-10-16] MEDS: ASPIRIN PO SCH (13:54)
[2016-10-16] MEDS: NORVASC PO SCH (13:54)
[2016-10-16] MEDS: PROZAC PO SCH (13:54)
[2016-10-16] MEDS: CRESTOR PO SCH (13:54)
[2016-10-16] MEDS: MIRALAX PO SCH (13:55)
[2016-10-16] MEDS: ROCEPHIN 1 GM in NS 50 ML IV SCH (13:57)
[2016-10-16] MEDS ORDERED: SODIUM BICARBONATE 8.4% 150 MEQ in D5W 1,000 ML IV SCH (14:00)
--- NOTE | 2016-10-16 14:20 | CARDIAC CATH REPORT ---
DATE: 10/16/2016 PROCEDURES PERFORMED: 1. Left heart catheterization. 2. Selective coronary angiogram. 3. Opacification of right femoral artery. There was no LV gram nor any deployment of Angio-Seal device. HISTORY: This is a 65-year-old male presenting with increasing dyspnea, acute pulmonary edema, positive troponin levels, abnormal EKG. All of that suggested coronary artery disease. Echocardiogram showed wall motion abnormality that was suspicious for coronary artery disease. After extensive discussion with the patient and the family, cardiac catheterization was recommended, and because of the history of chronic kidney disease and single kidney, he was prepared with IV bicarbonate and Mucomyst. The benefit, risks and complications were discussed. He consented for the procedure. DESCRIPTION OF PROCEDURE: The patient came into the cardiac dentures lab technician in the fasting state. The right groin was prepped and draped in sterile fashion and anesthetized with lidocaine 1%. A 6- Wolof sheath was inserted in the right femoral artery by following the modified Seldinger technique. Using 6-Wolof 4 left and right Chivo catheters, the left and right coronary arteries were sequentially opacified in multiple projections. Then using the right Chivo catheter, the aortic valve was negotiated. Left ventricular pressure was determined. Left ventriculogram was not performed. Then the catheter was pulled back, the sheath was flushed. The right femoral artery was opacified; however, the insertion of the catheter was in the superficial femoral artery; therefore, we felt that it was probably best to remove the sheath manually. Hemostasis was accomplished with hand compression, and the patient tolerated the procedure well. SUMMARY OF HEMODYNAMIC FINDINGS: Central aortic pressure was 116/69, left ventricular pressure 114/8. LVEDP is normal. SUMMARY OF ANGIOGRAPHIC FINDINGS: 1. Left main coronary artery: This vessel appears to be anatomically normal. It divides into the LAD and circumflex. 2. Left anterior descending coronary artery: This vessel shows an ostial stenosis of 95% to 99%. Thereafter, the LAD gives rise to several diagonal branches, at least 3. They are small with suggestion of some mild diffuse disease in the most proximal one. After the third diagonal, the LAD is completely occluded. The apical portion of the LAD is visualized through an ipsicollateral vessel. 3. Circumflex coronary artery: The circumflex coronary artery is a nondominant system. It has proximally a high lateral branch or ramus intermedius type of branch that has a diffuse disease in the order of 60% that is very small. Thereafter it gives rise to a tiny lateral vessel. Then the circumflex shows an area of plaque of about 30% to 40%. It gives rise to a tiny AV branch and more distally divides into 2 obtuse marginal vessels that appear to be anatomically free of obstruction. 4. Right coronary artery: The right coronary artery is a large dominant system and shows mild diffuse plaque in the order of 30% proximally and in its midsection. It gives rise to sinus wilber branch and the conus branch. Distally there is mild plaque, no more than 20%, and gives rise to posterior descending branch and a posterolateral vessel which in its most terminal bifurcation shows an area of stenosis of about 75% to 80%. At that level, the vessel is very tiny and very distal. LEFT VENTRICULOGRAM: Not performed in this case. RIGHT FEMORAL ARTERY OPACIFICATION: The right femoral artery was opacified, and unfortunately the catheter entered the superficial vessel; therefore, Angio-Seal device was not deployed. CONCLUSIONS: 1. Normal left ventricular hemodynamics. 2. Severe coronary artery disease. Severe stenosis of the proximal ostial LAD and a complete occlusion of the distal LAD. The midsegment of the vessel appears to be at jeopardy because there are several septal and 3 diagonal branches that take off from the stenotic segment. The circumflex and the right coronary artery showed diffuse disease of mild to moderate degree. No critical lesion noted there. 3. Unremarkable right femoral artery. There is no evidence of aortic stenosis. RECOMMENDATIONS: Based on these findings, the patient will be advised to consider pursuing revascularization of at least the proximal segment of the LAD. We will send the patient for a second opinion to [facility]'s interventional group. Dr. Gonsalves will follow him at the office. Thank you for the opportunity to participate in his evaluation. cc: Vinayak Fisher MD
[2016-10-16 15:24] VITALS: BP 128/74
--- NOTE | 2016-10-16 16:04 | PROGRESS NOTE ---
DATE: 10/16/2016 SUBJECTIVE: Today, Mr. Reed refers to be relatively fine. Has no cough. Shortness of breath has improved. Just finished the left heart catheterization. OBJECTIVELY: Vitals: Blood pressure is 128/74, pulse 68, respirations 18, temperature is 98. General: Mr. Reed is a 65-year-old male. He is in bed. He did not seem to be in any distress. HEENT: Mucosa is pink and moist. Anicteric. Acyanotic. Neck: Supple. Chest: Air entry is slightly bilaterally reduced, especially to the posterior bases, few crepitations. Cardiovascular: Regular rate and rhythm. There are no murmurs, no rubs, no gallops. Abdomen: Soft, nontender. There is no hepatosplenomegaly. Extremities: No pedal edema. RESISTOR WINDER: Patient is awake, alert and oriented x4. No focal neurological deficit. LABORATORY DATA: WBC 10.97, hemoglobin is 15.8, platelet count is 219. Chemistry is reviewed, unremarkable except for creatinine which is 2.6. Magnesium is 2.2. Left heart catheterization report shows severe coronary artery disease. Severe stenosis of the proximal ostial LAD and complete occlusion of the distal LAD. ASSESSMENT: 1. Acute hypoxemic respiratory failure on presentation, secondary to pulmonary edema from congestive heart failure. 2. Congestive heart failure. Ejection fraction 35-40% with abnormal movement suggestive of coronary artery disease. 3. Non-ST elevation myocardial infarction. Left heart catheterization consistent with severe coronary artery disease with ostial stenosis of the left anterior descending of about 90% and total occlusion of the distal left anterior descending. There is an arrangement from Cardiology standpoint for patient to be transferred to [place]. 4. Chronic kidney disease stage 4. The patient is making adequate urine. 5. 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 PLAN: So, in general, Mr. Reed is clinically stable. We are going to discontinue the antibiotics since we do not think he has pneumonia. We will continue with the current gentle hydration for prophylaxis for contrast induced nephropathy. There is an arrangement for the patient to be transferred to [place] for revascularization evaluation. cc: Alex Rollins MD
--- NOTE | 2016-10-18 21:11 | DISCHARGE SUMMARY ---
ADMISSION DATE: 10/12/2016 DISCHARGE DATE: 10/16/2016 DISPOSITION: [facility]. CONSULTATION DURING THIS ADMISSION: 1. Cardiology was consulted. Patient was seen by Devante Gonsalves MD. 2. Nephrology was consulted. Patient was seen by Zeke Hoang MD. IMAGING STUDIES OF SIGNIFICANCE: 1. A CT scan of the chest was done on presentation which shows cardiomegaly with pleural effusions and pulmonary edema. Multifocal bilateral small patchy infiltrates. Moderate coronary artery calcifications. 2. An echocardiogram was done which showed ejection fraction of 35-40% with akinesis of apical septum and apex of the left ventricle. 3. A left heart catheterization was done which showed severe stenosis of proximal posterior LAD and a complete occlusion of the distal LAD. ADMISSION DIAGNOSES: 1. Acute hypoxemic respiratory failure. 2. Community-acquired pneumonia. 3. Acute on chronic kidney problem. 4. Troponin elevations. DIAGNOSIS AT THE TIME OF DISCHARGE: 1. Acute hypoxemic respiratory failure on presentation, secondary to pulmonary edema from congestive heart failure. 2. Systolic congestive heart failure. Ejection fraction of 35 to 40% secondary to coronary artery disease. 3. [id number] myocardial infarction with left heart catheterization showing severe coronary artery disease with ostial stenosis of the left anterior descending artery of about 90% and total occlusion of the distal left anterior descending. 4. Chronic kidney disease stage 4. 5. 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 PRESENTING COMPLAINT: Cough. Hemoptysis. HISTORY OF PRESENT COMPLAINT: Mr. Reed is a 65-year-old male with multiple comorbidities including CKD, hypertension, solitary kidney who presented to the emergency department because of cough, hemoptysis and shortness of breath. The patient was evaluated. A CT scan was done initially which shows some multifocal infiltrates. Patient was initially treated for multifocal pneumonia as well as pulmonary edema. Troponins were elevated so we started to work him up for possible coronary artery disease. HOSPITAL COURSE: The patient was initially admitted to the ICU. Got stabilized. Shortness of breath improved with diuretic therapy and Cardiology was consulted and Nephrology was consulted. During the workup, it was found that the patient has severe coronary artery disease which needed some intervention, so a decision was made by Cardiology to transfer the patient to [place] where he will follow with further medical care. The patient was transferred subsequently to [facility] in [place] in a stable condition. TIME SPENT FOR DISCHARGE: 37 minutes. cc: Alex Rollins MD
== END 2016-10-16 18:00 | disposition short-term general hospital (02) ==
LOC: ED 04:37 → EDIPHOLD 09:42 → ICU 23:09 → 4N 10-15 16:54 → 3S 10-16 13:08
PROVIDERS: ATTEND Internal Medicine

== ENCOUNTER 2019-06-03 16:29 | Inpatient (IN) ==
[2019-06-03] MEDS ORDERED: CALCIUM CHLORIDE ONE (17:30)
[2019-06-03] MEDS ORDERED: SODIUM BICARBONATE 8.4% ONE (17:30)
[2019-06-03] MEDS ORDERED: EPINEPHRINE SYRINGE ONE (17:30)
[2019-06-03] MEDS ORDERED: ATROPINE SYRINGE ONE (17:30)
--- NOTE | 2019-06-03 17:35 | Diag Imaging Result Doc PS360 ---
EXAM: CHEST-1 VIEW 06/03/2019 HISTORY: sepsis protocol TECHNIQUE: AP portable upright at 1718 COMMENT: There is diffuse alveolar opacity bilaterally. There is a pacemaker on the left. The heart size is enlarged. IMPRESSION: Pulmonary edema/ARDS. The possibility of pneumonia cannot be excluded. Electronically signed by Mustapha Kelly 06/03/2019 5:32 PM
[2019-06-03] MEDS ORDERED: NS 1,000 ML ONE ×3 (17:45→21:09)
[2019-06-03] MEDS: EPINEPHRINE 4 MG in NS 250 ML IV SCH (18:12)
[2019-06-03] MEDS ORDERED: DOPAMINE 800 MG/D5W 800 MG/500 ML IV.SOLN ONE (18:16)
[2019-06-03] MEDS ORDERED: ASPIRIN ONE (18:17)
[2019-06-03] MEDS: DOPAMINE 800 MG/D5W 800 MG/500 ML IV.SOLN IV SCH ×2 (18:23→21:49)
[2019-06-03 18:50] LABS: URINE SOURCE CLEAN CATCH
[2019-06-03 18:56] LABS: BILIRUBIN URINE NEGATIVE (NEGATIVE); BLOOD URINE MODERATE (NEGATIVE); COLOR YELLOW; GLUCOSE URINE NEGATIVE (NEGATIVE); KETONE URINE NEGATIVE (NEGATIVE); LEUKOCYTES URINE SMALL (NEGATIVE); NITRITE URINE NEGATIVE (NEGATIVE); PH URINE 5.5; PROTEIN URINE 300 mg/dL (NEGATIVE); SP GRAVITY URINE 1.019; TURBIDITY URINE HAZY (CLEAR); UROBILINOGEN URINE NORMAL (NORMAL)
[2019-06-03 18:57] LABS: UR EPITHELIAL CELLS >10 /HPF (<10); URINE BACTERIA NEGATIVE /HPF; URINE RBC TNTC /HPF (<10); URINE WBC 20-40 /HPF (<10)
[2019-06-03 19:05] LABS: BASO# 0.11 X1000 (0.0-0.2); BASO% 0.8 % (0.0-0.8); EOS# 0.08 X1000 (0.0-0.7); EOS% 0.6 % (0.0-10.0); HEMOGLOBIN 11.3 g/dL (14.0-18.0); IMM GRAN# 0.51 X1000 (0.0-0.04); IMM GRAN% 3.8 % (0.0-0.5); LYMPH# 2.74 X1000 (1.2-3.4); LYMPH% 20.2 % (20.5-51.1); MCH 23.4 PG (27-31); MCV 80.9 FL (81-99); MONO# 0.72 X1000 (0.11-0.59); MONO% 5.3 % (1.7-9.3); NEUT# 9.41 X1000 (1.4-6.5); NEUT% 69.3 % (42.2-75.2); PLT 268 X1000 (130-400); RBC 4.82 XMIL (4.7-6.1); WBC 13.57 X1000 (4.8-10.8)
[2019-06-03 19:12] LABS: INR 1.49; PROTIME 18.3 Seconds (11.0-16.0)
[2019-06-03 19:13] LABS: PTT 46.2 Seconds (22.3-41.8)
--- NOTE | 2019-06-03 19:29 | Diag Imaging Result Doc PS360 ---
EXAM: CHEST/ABD TUBE PLACEMENT 06/03/2019 HISTORY: tube TECHNIQUE: AP portable at 1906 COMMENT: There is an endotracheal tube with its tip at thoracic inlet and an NG tube with its tip below the diaphragm. There is a pleural effusion on the right. There is alveolar opacity bilaterally as there was on the previous study at 1718. IMPRESSION: NG tube and endotracheal tube as described. Electronically signed by Mustapha Kelly 06/03/2019 7:27 PM
[2019-06-03 19:32] LABS: ALB/GLOB RATIO 1.9; ALBUMIN 3.5 g/dL (3.5-5.0); CALCIUM 8.3 mg/dL (8.8-10.2); CREATININE 3.9 mg/dL (0.7-1.2); POTASSIUM 4.6 mmol/L (3.5-5.1); TOTAL BILIRUBIN 0.64 mg/dL (0.20-1.00); TOTAL PROTEIN 5.3 g/dL (6.3-8.3)
[2019-06-03 19:38] LABS: BANDS 4 % (0-1); LYMPHS 32 % (21-51); SEGS 64 % (42-75)
[2019-06-03 19:39] LABS: POIKILOCYTOSIS 1+
[2019-06-03 19:40] LABS: HYPOCHROM 2+
[2019-06-03 21:08] LABS: ALLEN TEST YES; BLOOD TYPE ARTERIAL; METHB 1.3 % (0.0-1.5); O2(CT) 19.4 mL/dL (15.0-23.0); O2HB 96.6 % (95.0-99.0); PCO2(98.6) 43 mmHg (35-45); PO2(98.6) 262 mmHg (60-100); SAMPLE BLOOD; SRATE 20 BPM; THB 13.8 g/dL (11.5-17.4); TVOL 600 mL
[2019-06-03 21:10] LABS: pH(98.6) 7.14 (7.35-7.45)
[2019-06-03 21:11] LABS: MODALITY VENTILATOR
[2019-06-03] MEDS ORDERED: ZOSYN 3.375 GM in NS 50 ML IV ONE (21:50)
[2019-06-03] MEDS ORDERED: VANCOMYCIN IV PER PHARMACY MISC SCH (22:45)
[2019-06-03] MEDS ORDERED: LASIX IV ONE (23:01)
[2019-06-03 23:19] LABS: ALLEN TEST YES; BE -14.1 mmoll (-3.0-3.0); BLOOD TYPE ARTERIAL; HCO3-(ACT) 13.9 mmoll (20.0-26.0); METHB 1.1 % (0.0-1.5); O2(CT) 18.3 mL/dL (15.0-23.0); O2HB 94.7 % (95.0-99.0); PCO2(98.6) 46 mmHg (35-45); PO2(98.6) 93 mmHg (60-100); SAMPLE BLOOD; SAO2 97.6 % (95.0-100.0); SRATE 20 BPM; THB 13.7 g/dL (11.5-17.4); TVOL 600 mL
[2019-06-03 23:22] LABS: MODALITY VENTILATOR; pH(98.6) 7.12 (7.35-7.45)
[2019-06-03] MEDS ORDERED: ZOFRAN IV PRN (23:45)
[2019-06-04] MEDS ORDERED: NS 1,000 ML IV SCH
[2019-06-04] MEDS ORDERED: VANCOMYCIN 1,400 MG in NS 250 ML IV ONE (00:30)
[2019-06-04] MEDS: DOPAMINE 800 MG/D5W 800 MG/500 ML IV.SOLN IV SCH ×2 (01:06→04:22)
[2019-06-04] MEDS: HEPARIN SUBQ SCH ×3 (01:41→15:39)
--- NOTE | 2019-06-04 02:29 | HISTORY AND PHYSICAL ---
CHIEF COMPLAINT: Chest pain. HISTORY OF PRESENT ILLNESS: Mr. Reed is an unfortunate 68-year-old male who comes into the emergency room with the complaint of chest pain. Apparently, he very quickly lost his pulse and was coded in the emergency room and subsequently intubated so no real H and P was obtained. 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 Chest x- ray appeared to be pulmonary edema versus ARDS. The patient is having lactic acidosis and has probable anoxic brain injury, according to the CT of his head. He will be admitted to ICU for further evaluation and treatment. PAST MEDICAL HISTORY: See HPI. PREVIOUS SURGICAL HISTORY: Right nephrectomy, coronary stents. ALLERGIES: No known drug allergies. HOME MEDICATIONS: No current list. SOCIAL HISTORY: Former smoker. Unknown history of alcohol. Do not believe he used drugs. FAMILY HISTORY: Unable to be obtained. REVIEW OF SYSTEMS: This could not be completed related to patient being intubated and sedated on the ventilator. PHYSICAL EXAMINATION: VITAL SIGNS: Temperature 98, pulse 131, respirations 20, blood pressure 104/62, oxygen saturation 98% on room air. GENERAL: A 68-year-old male lying in the ER stretcher. He is intubated and sedated, on vasopressors. He is status post code but does not appear to be in acute distress at this moment. HEENT: Head is atraumatic, normocephalic. Right pupil is around 2 mm and fixed. 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 Left pupil is 8 mm and is nonreactive. Extraocular eye movement could not be tested. Sclera is anicteric. Conjunctiva is mildly pale. Oral mucosa is moist. NECK: Supple. No JVD. No thyromegaly. Trachea is midline. No cervical lymphadenopathy. CARDIAC: S1, S2 appreciated. No murmurs, gallops, rubs. LUNGS: Bilateral rales noted throughout lung [place]. Symmetrical rise and fall with respirations. No wheezing. Decreased airway entry. ABDOMEN: Soft, nondistended. Bowel sounds present all 4 quadrants, hypoactive. No pulsatile mass or organomegaly. EXTREMITIES: No clubbing, cyanosis. Two-plus pitting edema. One-plus pedal pulses. Extremities are cool to touch. GENITOURINARY: No bladder distention. Otherwise deferred. NEUROLOGICAL: Could not be examined. The patient is intubated and sedated. DIAGNOSTIC DATA: CT preliminary report was read as probable anoxic brain injury. Chest x-ray: Diffuse alveolar opacities bilaterally, cardiomegaly, pulmonary edema versus ARDS, cannot exclude pneumonia. LABORATORY DATA: WBC 13.57. Hemoglobin 11.3. Hematocrit 39. Platelet count 268. INR 1.49. ABG: pH 7.12, pCO2 of 46, PO2 of 93, bicarbonate 13.9, is on 100% ventilation. Sodium 143. Potassium 4.6. Chloride 102. Carbon dioxide 17. BUN 43. Creatinine 3.9. Glucose 205. ProBNP 23,791. Plasma lactate 8.3. Urine was a dirty sample, greater than 10 epithelial cells, but was leukocyte esterase positive with 20-40 WBCs. ASSESSMENT: 1. Chest pain, rule out acute myocardial infarction. 2. Acute respiratory failure. 3. Probable congestive heart failure exacerbation. 4. Lactic acidosis. 5. Probable bacterial pneumonia. PLAN: Admit patient to ICU. Isolation precautions. He was COVID-19 tested in the emergency room. We will place the patient on Zosyn and vancomycin. Continue vasopressors. We will give 80 mg of IV Lasix. Repeat chest x-ray. At this point, I am unsure if the patient is in ARDS or florid pulmonary edema. Also possible that he has a pneumonia which he will be treated for. Check blood cultures. Consult Pulmonology for ventilator management. Consult Dr. Hoang for advanced stage chronic kidney disease. Echocardiogram Wednesday. Patient has an overall poor prognosis related to his CT scan being read as probable anoxic brain injury. He will continue to be monitored in the ICU. Further recommendations per patient clinical course. CRITICAL CARE TIME: 30 minutes. Dictated by ELIZABETH Blackmon for Ivan Nunez MD cc: ELIZABETH Blackmon
[2019-06-04] MEDS: EPINEPHRINE 4 MG in NS 250 ML IV SCH (02:50)
[2019-06-04] MEDS ORDERED: LOPRESSOR ONE (04:31)
[2019-06-04] MEDS ORDERED: NS 2,000 ML ONE (04:32)
[2019-06-04] MEDS ORDERED: LR 1,000 ML ONE (04:40)
[2019-06-04] MEDS: ZOSYN 2.25 GM in NS 50 ML IV SCH ×4 (04:50→22:15)
[2019-06-04] MEDS ORDERED: MAGNESIUM SULFATE 1 GM/D5W 1 GM/100 ML IVPB IV ONE (05:23)
[2019-06-04] MEDS ORDERED: LEVOPHED 8 MG in D5 1/2 NS 250 ML IV SCH (05:30)
[2019-06-04] MEDS ORDERED: NEO-SYNEPHRINE 50 MG in NS 250 ML IV SCH (05:30)
[2019-06-04 06:18] LABS: ALLEN TEST YES; BE -12.7 mmoll (-3.0-3.0); BLOOD TYPE ARTERIAL; HCO3-(ACT) 14.9 mmoll (20.0-26.0); METHB 1.1 % (0.0-1.5); O2(CT) 16.7 mL/dL (15.0-23.0); O2HB 92.6 % (95.0-99.0); PCO2(98.6) 37 mmHg (35-45); PO2(98.6) 64 mmHg (60-100); SAMPLE BLOOD; SAO2 95.8 % (95.0-100.0); SRATE 22 BPM; THB 12.8 g/dL (11.5-17.4); TVOL 600 mL
[2019-06-04 06:23] LABS: MODALITY VENTILATOR
[2019-06-04 07:25] LABS: CK INDEX 14.8 (0.0-2.5); CK-MB 124.7 ng/mL (0.0-5.0)
--- NOTE | 2019-06-04 07:28 | Diag Imaging Result Doc PS360 ---
EXAM: CT HEAD W/O CONTRAST 06/03/2019 HISTORY: unresponsive TECHNIQUE: This exam was performed using automated exposure control, adjustment of mA or kV according to patient size, and/or use of iterative reconstruction technique. COMMENT: There are no previous studies available for comparison. There is calcification of the left vertebral artery and the right internal carotid. There is diminished attenuation of the caudate nuclei and the obtainment on both sides. There is some loss of domingo-white matter contrast of both hemispheres. Some decreased attenuation in the occipital lobes is also noted. There is no evidence of bleed or abnormal extra-axial fluid collection. The calvarium is intact. The visualized paranasal sinuses are clear. IMPRESSION: Decreased attenuation of basal ganglia nuclei and loss of domingo-white matter differentiation which suggests global anoxia/hypoxic encephalopathy. Electronically signed by Mustapha Kelly 06/04/2019 7:25 AM
--- NOTE | 2019-06-04 09:37 | PROGRESS NOTE ---
DATE: 06/04/2019 SUBJECTIVE: The patient is on mechanical ventilation. He is not sedated. He is unresponsive. He is status post cardiac arrest yesterday. I do not have the details of the resuscitation process but it looks like he has a high possibility of anoxic brain injury based on the head CT scan report. Again, he is not on sedation. 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 His left eye, I do not notice any movement. No gag reflex for me. OBJECTIVE: Vital Signs: Temperature 95.6 degrees, pulse 85, respiratory rate 21, blood pressure 101/60, oxygen saturation 93 on mechanical ventilation. HEENT: Head normocephalic. No trauma. 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 His left pupil is fixed and midsize. Neck: Supple. No JVD. Central trachea. Chest: Coarse breath sounds bilaterally. Abdomen: Soft. Positive bowel sounds. Extremities: There is 3+ lower extremity edema. No clubbing. No cyanosis. Neurological Examination: The patient is unresponsive. He is not moving with pain stimulation. Laboratory: Pending lab work today except ABGs that showed a pH of 7.2, pCO2 of 37, PO2 of 64. Lactate level is 4.9. CK 842, troponin 1235. ASSESSMENT AND PLAN: 1. Status post cardiac arrest. There is a high possibility of anoxic brain injury based on my physical exam and images. CT scan showed a decreased attenuation of basal ganglia nuclei and loss of domingo-white matter differentiation which suggests global anoxia/hypoxic encephalopathy. His troponins increased significantly. He has been placed on pressors. It looks like he has a strong history of coronary artery disease and he has a cardiac device on the left side of the chest that looks like a pacemaker for me, cardiomegaly. He has been placed also on antibiotics. 2. Apparently presented to the emergency room with chest pain and rapidly lost his pulse, as per #1. 3. Acute respiratory failure. Continue with mechanical ventilation. 4. Possible congestive heart failure exacerbation. He received a dose of Lasix. I will monitor for now, pending lab work today. Cardiology department, nephrology department, and pulmonary department have been consulted. 5. Lactic acidosis. His pH is still low at 7.2. His bicarb level is 14.9. I will wait for the new results, CBC and CMP. 6. Elevated troponin in the setting of cardiac arrest. Cardiology has been consulted. 7. Bilateral pneumonia. We have placed this patient on broad-spectrum antibiotics. I will stop the vancomycin because of his chronic kidney disease. 8. Acute on chronic kidney disease. I will avoid nephrotoxic medications. He has been placed on vasopressors and given his pulmonary edema, he received also Lasix yesterday night. 9. Right eye blindness. 10. History of hypertension. Actually, this patient is getting some vasopressors. 11. Likely cardiogenic shock. This patient is status post cardiac arrest. There is also a possibility of septic shock due to the pneumonia and elevated white blood cell count. 12. Global encephalopathy with a high possibility of anoxic brain injury. CRITICAL CARE TIME: 45 minutes. I discussed the case with Mr. Reed's and also his daughter, Ms. Marni Matthew, [phone]. We discussed the case for about 20 minutes. I explained today that this patient is remarkably sick and I told them that I do not believe that he will survive this hospitalization. I explained today about the anoxic brain injury. I also told them that he is not on any sedation and he is not waking up. They asked me to continue with treatment but no chest compressions if this patient's heart stops so he has been placed Do Not Resuscitate level 2 for now. They want to wait for the cardiology, nephrology, and pulmonary evaluation. Also, they want to know if the brain doctor can see the patient, so probably tomorrow, I will ask Dr. Moctezuma or Dr. Mendieta to see the patient if the patient is still alive. His prognosis is extremely poor due to his multiple comorbidities and the high possibility of anoxic brain injury. cc: Karlos Cadena MD
[2019-06-04] MEDS: ZYVOX 600 MG/D5W 600 MG/300 ML IVPB IV SCH ×2 (09:41→20:28)
[2019-06-04] MEDS: PROTONIX IV SCH ×2 (10:13→20:29)
[2019-06-04 10:34] LABS: ALB/GLOB RATIO 1.4; ALBUMIN 3.1 g/dL (3.5-5.0); CALCIUM 8.4 mg/dL (8.8-10.2); CREATININE 4.2 mg/dL (0.7-1.2); POTASSIUM 4.5 mmol/L (3.5-5.1); TOTAL BILIRUBIN 1.19 mg/dL (0.20-1.00); TOTAL PROTEIN 5.3 g/dL (6.3-8.3)
[2019-06-04] MEDS ORDERED: D50W SYRINGE IV ONE (10:38)
[2019-06-04] MEDS: CLINIMIX E 4.25%-5% SOLUTION 1,000 ML IV SCH (11:12)
[2019-06-04] MEDS: D50W SYRINGE IV PRN ×2 (11:30→17:54)
[2019-06-04] MEDS ORDERED: OFIRMEV 1000 MG/ISOTONIC SOLN 1,000 MG/100 ML BOTTLE IV PRN (12:35)
[2019-06-04] MEDS: SODIUM BICARBONATE 8.4% IV PUSH SCH ×2 (13:01→17:39)
--- NOTE | 2019-06-04 13:36 | CONSULTATION ---
DATE OF CONSULTATION: 06/04/2019 IMPRESSION: 1. Status post cardiopulmonary arrest. 2. Pulmonary edema. 3. Recent chest pain and abnormal cardiac enzymes, suggesting non-ST elevation myocardial infarction. 4. Severe coronary atherosclerosis and significant ischemic cardiomyopathy. Patient is status post implantable defibrillator. 5. Status post implantable defibrillator. 6. Chronic kidney disease. Patient has a history of previous right nephrectomy. 7. Hypertension. 8. Hyperlipidemia. 9. Patient is deaf. RECOMMENDATIONS: 1. Continue supportive care. 2. Diuresis as permitted. 3. Continue intravenous pressors for support. 4. Echocardiography. 5. Follow up cardiac enzymes. 6. The patient appears to have significant anoxic encephalopathy and prognosis appears to be poor. HISTORY: This 68-year-old, white male with a past history of coronary atherosclerosis, ischemic cardiomyopathy, previous implantable defibrillator, hypertension, hyperlipidemia, and chronic kidney disease was admitted from the emergency room after he presented with chest symptoms and developed cardiopulmonary arrest in the emergency room. He is now on a ventilator in the intensive care unit and unresponsive. He is not able to contribute any history. Details of his presentation are obtained from current records. He has had progressive decline in renal function and not long ago, underwent a percutaneous procedure to establish a fistula for future dialysis. He came to the emergency room with the complaint of chest discomfort. Details not available. During evaluation and treatment in the emergency room, he developed cardiopulmonary arrest and was intubated. He did require CPR and efforts to resuscitate him were somewhat extended in duration. His chest x-ray indicated severe pulmonary edema and laboratory data indicated lactic acidosis. Brain imaging studies reportedly suggest significant anoxic brain injury. When I see him, he is unresponsive, on the ventilator, and on no sedation. PAST MEDICAL HISTORY: 1. Atherosclerotic coronary disease with previous coronary angioplasty and stenting in the past, as well as significant ischemic cardiomyopathy. He is status post implantable defibrillator. 2. Hypertension. 3. Hyperlipidemia. 4. Chronic kidney disease. 5. Deaf. 6. PTSD. PAST SURGICAL HISTORY: Includes right nephrectomy, coronary angioplasty/stent procedure, and percutaneous procedure to establish fistula for dialysis. ALLERGIES: He has no known drug allergies. MEDICATIONS PRIOR TO ADMISSION: As listed. SOCIAL HISTORY: He has a history of previous cigarette use in the past but no longer smokes. He does not use alcohol. His primary provider is with the [facility]. FAMILY HISTORY: Positive for coronary artery disease. REVIEW OF SYSTEMS: Not obtainable, given patient's condition. PHYSICAL EXAMINATION: General: This is an older, white male who is unresponsive, on the ventilator. Vital Signs: Blood pressure 132/74, heart rate 97, oxygen saturation 95% on the ventilator with FiO2 of 50%. Mucous membranes are moist. Neck: Supple, without discernible jugular distention. Auscultation of the chest reveals coarse breath sounds bilaterally. Cardiac Examination: Reveals a regular rate and rhythm without appreciable murmur or gallop. Abdomen: Soft. Bowel sounds audible. Extremities: Demonstrate 1+ to 2+ pretibial edema. LABORATORY DATA: Includes a white blood cell count of 13.57, hematocrit 39.0, hemoglobin 11.3, platelet count 268,000. Sodium 143, potassium 4.6, chloride 102, carbon dioxide 17, BUN 43, creatinine 3.9, glucose 205. Initial troponin T high sensitivity 35 with followup troponin T high sensitivity 1235. Initial CPK 89 with followup CPK 842. CPK-MB 124.7, CPK-MB index. 14.8. Lactate 8.3. Chest x-ray is reviewed and demonstrates bilateral infiltrates consistent with acute pulmonary edema. Cardiomegaly demonstrated. cc: Karan Espinoza MD
--- NOTE | 2019-06-04 14:35 | PULMONOLOGY CONSULTATION ---
DATE: 06/04/2019 HISTORY OF PRESENT ILLNESS: Mr. Reed is a 68-year-old, white male who presented to the emergency room with chest pain by report. The patient became bradycardic at 1730 and subsequently became pulseless. CPR was initiated and patient was intubated on the third attempt. The patient regained spontaneous circulation at 1828. His hemodynamics have improved and he is now in the ICU. PAST MEDICAL HISTORY/PROBLEM LIST: 1. Ischemic cardiomyopathy, status post implantable defibrillator. 2. History of right nephrectomy with chronic kidney disease. He underwent placement of a left radiocephalic arteriovenous fistula by Dr. Ceasar Torres on 05/19/2019. 3. History of prior tobacco use. 4. Dyslipidemia. 5. Hypertension. 6. Bilateral deafness. SOCIAL HISTORY: Prior tobacco use noted but duration and amount not currently available. No alcohol use listed. FAMILY HISTORY: Positive for heart disease. REVIEW OF SYSTEMS: Cannot be obtained. PHYSICAL EXAMINATION: General: Reveals a acute on chronically ill-appearing, 68-year-old, white male. Temperature 102 degrees, blood pressure 127/73, heart rate 98, respiratory rate 29, oxygen saturation 95%. HEENT: There is clouding of the right cornea with an irregular pupil. Left pupil appears clear but very sluggish response to light. Oropharynx appears clear. There is an NG tube in place, draining coffee-grounds material. Endotracheal tube is in the oropharynx with bloody secretions noted. Chest: Reveals diffuse bilateral crackles and rhonchi. Cardiac Examination: S1, S2 with a 1 to 2/6 systolic ejection murmur, right upper sternal border. Abdomen: Soft, with no bowel sounds. Extremities: Reveal peripheral mottling. LABORATORIES: Chest x-ray reveals diffuse bilateral infiltrates with a pacemaker in position. CT scan of the brain reveals decreased attenuation in the basal ganglia and loss of domingo matter differentiation, suggesting anoxic/hypoxic encephalopathy. Arterial blood gas reveals a pH of 7.20, pCO2 of 37, PO2 of 64, with a lactate of 4.0. Sodium 136, potassium 4.5, chloride 102, bicarbonate 14, BUN 53, creatinine 4.2, glucose 39 with a repeat 135. Troponin is elevated at 1235, creatine kinase is elevated at 842, with an MB fraction of 124. IMPRESSION: A 68-year-old with: 1. Acute hypoxemic respiratory failure. 2. Cardiogenic shock with lactic acidosis. 3. Chronic renal failure. 4. Status post cardiac arrest with prolonged cardiopulmonary resuscitation. 5. Presumptive anoxic encephalopathy. DISCUSSION: This is a 68-year-old with problems outlined above. The patient has had a return of spontaneous circulation but had a very long CPR. His prognosis is extremely poor and he is unlikely to survive this hospital stay. He has extremely high risk of anoxic encephalopathy. PLAN: 1. Continue full ventilatory support. 2. Routine gastric acid suppression. 3. Check sputum for C and S. 4. Plan followup CT scan tomorrow. It is suspected that he will continue to decline given the prolonged resuscitation requirement. TIME SPENT IN CRITICAL CARE MANAGEMENT: One hour. cc: Juan M Ceja MD
[2019-06-04 15:16] LABS: CK INDEX 13.1 (0.0-2.5); CK-MB 74.58 ng/mL (0.0-5.0)
[2019-06-04] MEDS ORDERED: DIPRIVAN 1% 1,000 MG/100 ML BOTTLE ONE (15:34)
[2019-06-04] MEDS: DIPRIVAN 1% 1,000 MG/100 ML BOTTLE IV SCH ×2 (15:44→22:29)
[2019-06-04] MEDS: SODIUM CHLORIDE 0.9% INJ SCH (20:29)
[2019-06-04 21:35] LABS: CK INDEX 6.4 (0.0-2.5); CK-MB 26.04 ng/mL (0.0-5.0)
[2019-06-05] MEDS: HEPARIN SUBQ SCH ×3 (01:34→15:43)
[2019-06-05] MEDS: SODIUM BICARBONATE 8.4% IV PUSH SCH (01:47)
[2019-06-05] MEDS: ZOSYN 2.25 GM in NS 50 ML IV SCH ×3 (03:17→16:22)
[2019-06-05 04:41] LABS: ALLEN TEST YES; BE -5.8 mmoll (-3.0-3.0); BLOOD TYPE ARTERIAL; HCO3-(ACT) 20.4 mmoll (20.0-26.0); METHB 0.8 % (0.0-1.5); O2(CT) 16.9 mL/dL (15.0-23.0); O2HB 97.1 % (95.0-99.0); PCO2(98.6) 32 mmHg (35-45); PO2(98.6) 100 mmHg (60-100); SAMPLE BLOOD; SRATE 22 BPM; THB 12.3 g/dL (11.5-17.4); TVOL 600 mL; pH(98.6) 7.37 (7.35-7.45)
[2019-06-05 04:42] LABS: MODALITY VENTILATOR
[2019-06-05 05:32] LABS: BASO# 0.01 X1000 (0.0-0.2); EOS# 0.08 X1000 (0.0-0.7); EOS% 0.3 % (0.0-10.0); HEMATOCRIT 36.1 % (42.0-52.0); HEMOGLOBIN 11.2 g/dL (14.0-18.0); IMM GRAN# 0.07 X1000 (0.0-0.04); IMM GRAN% 0.3 % (0.0-0.5); LYMPH# 0.88 X1000 (1.2-3.4); LYMPH% 3.6 % (20.5-51.1); MCH 23.4 PG (27-31); MCV 75.4 FL (81-99); MONO# 1.03 X1000 (0.11-0.59); MONO% 4.2 % (1.7-9.3); MPV 10.9 FL (7.4-10.4); NEUT# 22.29 X1000 (1.4-6.5); NEUT% 91.6 % (42.2-75.2); PLT 198 X1000 (130-400); RBC 4.79 XMIL (4.7-6.1); RDW 16.9 % (11.5-14.5); WBC 24.36 X1000 (4.8-10.8)
[2019-06-05 05:51] LABS: ALBUMIN 2.8 g/dL (3.5-5.0); CALCIUM 8.4 mg/dL (8.8-10.2); CREATININE 5.1 mg/dL (0.7-1.2); MAGNESIUM 2.2 mg/dL (1.5-2.7); PHOSPHORUS 4.8 mg/dL (2.7-4.5); POTASSIUM 5.5 mmol/L (3.5-5.1); TOTAL BILIRUBIN 1.16 mg/dL (0.20-1.00); TOTAL PROTEIN 5.6 g/dL (6.3-8.3)
--- NOTE | 2019-06-05 06:43 | Diag Imaging Result Doc PS360 ---
EXAM: CHEST-PORTABLE HISTORY: respiratory failure TECHNIQUE: Single view COMPARISON: 06/03/2019 FINDINGS: No change in the endotracheal tube, nasogastric tube, or the left pacemaker. The heart is enlarged. There are bilateral infiltrates with pulmonary edema similar to the prior study. There are small pleural effusions. IMPRESSION: No interval improvement Electronically signed by Bridger James 06/05/2019 6:41 AM
--- NOTE | 2019-06-05 07:19 | EKG Report ---
Test Performed on : 06/03/2019 4:35:56 PM Test Reason : post arrest Blood Pressure : / mmHG Vent. Rate : 096 BPM Atrial Rate : 096 BPM P-R Int : 150 ms QRS Dur : 090 ms QT Int : 366 ms P-R-T Axes : 051 -08 104 degrees QTc Int : 462 ms Normal sinus rhythm. Possible Left atrial enlargement Possible Lateral infarct , age undetermined Abnormal ECG When compared with ECG of 13-OCT-2016 05:22, Borderline criteria for Lateral infarct are now present Criteria for Inferior infarct are no longer present T wave inversion less evident in Anterolateral leads Unconfirmed Result
--- NOTE | 2019-06-05 07:19 | EKG Report ---
Test Performed on : 06/03/2019 6:09:41 PM Test Reason : post arrest Blood Pressure : / mmHG Vent. Rate : 137 BPM Atrial Rate : 137 BPM P-R Int : 000 ms QRS Dur : 152 ms QT Int : 380 ms P-R-T Axes : 000 -68 092 degrees QTc Int : 573 ms Wide QRS tachycardia. Left axis deviation Left ventricular hypertrophy with QRS widening and repolarization abnormality Lateral infarct , possibly acute Inferior infarct , age undetermined ACUTE [place] / STEMI Abnormal ECG When compared with ECG of 03-JUN-2019 16:35, (Unconfirmed) Wide QRS tachycardia. has replaced Sinus rhythm. Unconfirmed Result
--- NOTE | 2019-06-05 07:19 | EKG Report ---
Test Performed on : 06/03/2019 6:31:41 PM Test Reason : post arrest Blood Pressure : / mmHG Vent. Rate : 141 BPM Atrial Rate : 107 BPM P-R Int : 000 ms QRS Dur : 150 ms QT Int : 402 ms P-R-T Axes : 000 -67 090 degrees QTc Int : 615 ms Wide QRS tachycardia. with occasional premature ventricular complexes. Left axis deviation Left ventricular hypertrophy with QRS widening and repolarization abnormality Inferior infarct , age undetermined Lateral injury pattern ACUTE [place] / STEMI Abnormal ECG When compared with ECG of 03-JUN-2019 18:09, (Unconfirmed) premature ventricular complexes. are now present Unconfirmed Result
--- NOTE | 2019-06-05 07:20 | EKG Report ---
Test Performed on : 06/03/2019 6:34:58 PM Test Reason : post arrest Blood Pressure : / mmHG Vent. Rate : 135 BPM Atrial Rate : 135 BPM P-R Int : 128 ms QRS Dur : 152 ms QT Int : 354 ms P-R-T Axes : 000 -68 098 degrees QTc Int : 531 ms Sinus tachycardia. Left axis deviation Left ventricular hypertrophy with QRS widening and repolarization abnormality Inferior infarct , age undetermined Anterolateral infarct , age undetermined Abnormal ECG When compared with ECG of 03-JUN-2019 18:31, (Unconfirmed) Sinus rhythm. has replaced Wide QRS tachycardia. Unconfirmed Result
--- NOTE | 2019-06-05 07:35 | EKG Report ---
Test Performed on : 06/03/2019 10:08:35 PM Test Reason : repeat Blood Pressure : / mmHG Vent. Rate : 120 BPM Atrial Rate : 120 BPM P-R Int : 162 ms QRS Dur : 094 ms QT Int : 332 ms P-R-T Axes : 070 -21 116 degrees QTc Int : 469 ms Sinus tachycardia. with occasional premature ventricular complexes. Possible Left atrial enlargement Inferior infarct (cited on or before 13-OCT-2016) Anterior infarct (cited on or before 03-JUN-2019) Abnormal ECG When compared with ECG of 03-JUN-2019 18:34, (Unconfirmed) premature ventricular complexes. are now present Questionable change in QRS duration Questionable change in initial forces of Lateral leads Unconfirmed Result
[2019-06-05] MEDS: PROTONIX IV SCH (09:52)
[2019-06-05] MEDS: CLINIMIX E 4.25%-5% SOLUTION 1,000 ML IV SCH (09:52)
[2019-06-05] MEDS: ZYVOX 600 MG/D5W 600 MG/300 ML IVPB IV SCH (09:52)
[2019-06-05] MEDS: SODIUM CHLORIDE 0.9% INJ SCH (09:53)
[2019-06-05] MEDS: DIPRIVAN 1% 1,000 MG/100 ML BOTTLE IV SCH (09:53)
--- NOTE | 2019-06-05 09:53 | Diag Imaging Result Doc PS360 ---
CT HEAD W/O CONTRAST - 06/05/2019 INDICATION: Prolonged CPR COMPARISON: 06/04/2019 FINDINGS: There is worsening, severe diffuse cerebral edema. There is severe worsening in hypodensity of the domingo matter of the basal ganglia. There is bilateral uncal herniation. There is diffuse sinusitis. IMPRESSION: Brain . This exam was performed using automated exposure control, adjustment of mA or kV according to patient size, and/or use of iterative reconstruction technique Electronically signed by Emre Fowler 06/05/2019 9:50 AM
--- NOTE | 2019-06-05 11:56 | PROGRESS NOTE ---
DATE: 06/05/2019 SUBJECTIVE: The patient is still on mechanical ventilation. He is basically unresponsive. He is status post cardiac arrest. New CT scan of the head showed that this patient basically is brain . Neurology Department has been consulted, and the family has requested an evaluation by the brain doctor, and probably talk to him by phone. PHYSICAL EXAMINATION: Vital Signs: Temperature 97.4 degrees, pulse 101, respiratory rate 22, blood pressure 140/86, oxygen saturation 97% on mechanical ventilation. HEENT: Head normocephalic, no trauma. 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 His left pupil is fixed and midsize. Neck: Supple. No JVD. Central trachea. Chest: Coarse breath sounds bilaterally. Abdomen: Soft. Extremities: There is 2+ to 3+ lower extremity edema. No clubbing. No cyanosis. Neurological: The patient is unresponsive. LABORATORY DATA: WBC 24.3, hemoglobin 11.2, hematocrit 36.1, platelets 198,000. Sodium 136, potassium 5.5, chloride 97, bicarbonate 17, BUN 69, creatinine 5.1, glucose 110, calcium 8.4. ASSESSMENT AND PLAN: 1. Status post cardiac arrest, which likely was a prolonged resuscitation. Cardiology on board. 2. Global encephalopathy with anoxic brain injury by images, and brain by images and physical exam. Neurology Department will evaluate this patient. I do believe the family is thinking in the near future to withdraw care. They are waiting for subspecialties evaluation. 3. Chest pain on presentation. Aware. 4. Likely non ST-elevation myocardial infarction. Cardiology on board. 5. Acute respiratory failure, on mechanical ventilation. 6. Possible congestive heart failure exacerbation. Will monitor. 7. Lactic acidosis. 8. Elevated troponin in the setting of cardiac arrest. 9. Bilateral pneumonia, on antibiotics. 10. Cardiogenic shock. He used to be on vasopressors. Now, seems to be off of it. 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 12. History of hypertension. Overall, his prognosis is extremely poor due to his brain damage per images and physical exam. Pending evaluation of Neurology Department to contact the family. Palliative Care on board. cc: Karlos Cadena MD
--- NOTE | 2019-06-05 12:14 | NEUROLOGY CONSULTATION ---
DATE: 06/05/2019 HISTORY OF PRESENT ILLNESS: Mr. Reed is in ICU bed 16. Mr. Reed is 68 years old, and he had cardiopulmonary arrest and has failed to regain consciousness. He had presented with shortness of breath. There is reported past medical history of hypertension, dyslipidemia, chronic kidney disease. Defibrillator was previously placed. I have reviewed the home medication list which includes p.r.n. hydrocodone and nothing else that would likely contribute to encephalopathy. Temperature was 102.7 degrees yesterday, and he has been afebrile today. Systolic blood pressures have ranged 140s to 150s in recent hours. Lab showed WBC 13,000 and then 24,000. Blood sugars were initially 200s, once as low as 39 and recently 100s. Calcium is 8.4, phosphorus 4.8, magnesium 2.2. PT was 18.3 with INR 1.49. PTT was 46.[address] of the head today shows complete loss of domingo/white distinction, diffuse lucency within the basal ganglia, increased brain edema with obliteration of ventricles and evidence of uncal herniation. Earlier scan showed much less prominent changes. PHYSICAL EXAMINATION: On exam, Mr. Reed is supine, intubated, mechanically ventilated. He did not appear to initiate ventilation on my view at the bedside. There is no lateral eye movement with passive head turning. Corneal reflexes are absent bilaterally. Left pupil does not react to bright light. Right cornea is sclerotic. There was no spontaneous limb movement. With noxious stimulation over the forehead, there was no limb movement or grimace. With noxious stimulation over each hand, there was slight decerebrate posture in the arms. I did not see withdrawal with noxious stimulation over the feet. Reflexes are absent throughout. Neck is supple. IMPRESSION AND PLAN: No clinical evidence of cortical or brainstem function. CT evidence of diffuse brain edema with bilateral ventricular obliteration and uncal herniation. This is sufficient to make the diagnosis of brain . I discussed this very frankly with son, Alberto Reed, by telephone. Son expressed understanding. He will relay information to his mother, the patient's . Further plans will depend on the discussion between attending and spouse. I do not think EEG or vascular workup would size changer. I ordered urine drug screen, but do not think opiate intoxication is responsible for the clinical findings. I do not think anything else is necessary at this point. Thanks for asking Neurology to see Mr. Reed. cc: MD MOHAMUD Mercado III
--- NOTE | 2019-06-05 15:37 | PROGRESS NOTE ---
DATE: 06/05/2019 SUBJECTIVE: Patient continues unresponsive on ventilator. OBJECTIVE: Vital Signs: Blood pressure 149/90, heart rate 108, oxygen saturation 97%. Neck: There is no significant jugular venous distention. Chest: Clear to auscultation bilaterally. Cardiac Exam: Reveals a regular rate and rhythm without appreciable murmur or gallop. Extremities: Demonstrate mild edema. IMAGING: Chest x-ray demonstrates cardiomegaly and bilateral infiltrates consistent with pulmonary edema which appears to have improved somewhat since initial chest x-ray. Head CT scan reports diffuse cerebral edema, severe worsening and hypodensity of the domingo matter of the basal ganglia and bilateral uncal herniations. LABORATORY DATA: Includes a white blood cell count of 24.36 hematocrit 36.1, hemoglobin 11.2, platelet count 198,000. Sodium 136, potassium 5.5, chloride 97, carbon dioxide 17, BUN 69, creatinine 5.1, glucose 110. Initial troponin TI sensitivity 35 with followup troponin TI sensitivities of 1235, 1845, and 2090. Initial CPK 89 with followup CPKs of 842, 570, and 408. IMPRESSION: 1. Status post cardiopulmonary arrest. 2. Severe anoxic brain injury. Head CT scan findings are ominous. Prognosis appears to be very poor. 3. Pulmonary edema. 4. Recent chest pain and abnormal cardiac enzymes suggesting non ST elevation myocardial infarction. 5. Severe coronary atherosclerosis and significant ischemic cardiomyopathy. Patient is status post implantable defibrillator. 6. Acute on chronic renal failure. 7. Hypertension. 8. Hyperlipidemia. RECOMMENDATIONS: 1. Continue supportive care. 2. Continue diuresis as permitted. 3. Followup echocardiography. 4. Patient appears to have severe anoxic encephalopathy and head CT scan findings are ominous. Prognosis appears to be grim. cc: Karan Espinoza MD
--- NOTE | 2019-06-05 15:38 | NEPHROLOGY CONSULTATION ---
DATE: 06/05/2019 REASON FOR CONSULTATION: Acute kidney injury overlying chronic kidney disease. Mr. Reed is a 68-year-old man who is known to us. 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 He came to the emergency room because of chest pain and became pulseless requiring protracted cardiovascular resuscitative efforts. He achieved spontaneous cardiac function and was intubated and treated with vasopressor support etc. In this context, his creatinine was 3.9 on admission which was roughly his baseline. It has risen progressively to 5.1, urine output has been low at 600 mL. Unfortunately, his head CT suggests brain . He did have some spontaneous respiratory activity, however. My understanding is that the family is contemplating withdrawal of care. PAST MEDICAL HISTORY: As above. He also has known coronary disease, diabetes, hypertension, hyperlipidemia. HOME MEDICATIONS: Include metoprolol, trazodone, amlodipine, hydralazine, lisinopril, furosemide, docusate, hydrocodone, atorvastatin, aspirin, sodium bicarbonate, trazodone. ALLERGIES: None. SOCIAL HISTORY: He is . Lives with his . She is a kidney transplant patient. FAMILY HISTORY: Not obtainable otherwise currently. REVIEW OF SYSTEMS: Not obtainable otherwise currently. OBJECTIVE: Blood pressure 149/90, heart rate 108, respirations 23, T-max 102.7 degrees. His exam is obtained from the staff as he is under isolation for COVID. Pupils are equal but unreactive. Conjunctivae are pink. Oropharynx is dry.Neck: Veins were not appreciated. Heart: Regular and tachycardic. Lungs: Have equal breath sounds with scattered rhonchi. Abdomen: Soft and quiet. Extremities: Have 2+ edema. IMPRESSION: Acute kidney injury overlying chronic kidney disease. Ischemic acute tubular necrosis overlying diabetic nephropathy. Given his catastrophic events, he would not be a candidate for renal replacement therapy. I will discuss this with his . cc: Zeke Hoang MD
--- NOTE | 2019-06-05 17:48 | PULMONOLOGY PROGRESS NOTE ---
DATE: 06/05/2019 SUBJECTIVE: The patient does not respond to pain. When he was disconnected from the ventilator, he does have some spontaneous respiratory effort. OBJECTIVE: Vital Signs: Blood pressure 137/85, heart rate 94, respiratory rate 17, oxygen saturation 100%. HEENT: Pupils are equal and reactive. Oropharynx appears clear. Neck: Neck is supple. Chest: Diffuse bilateral crackles. Cardiac exam: S1 and S2. Abdomen: Soft. Extremities: Reveal 1+ peripheral edema. LABORATORIES: Arterial blood gas reveals pH 7.37, pCO2 of 32, PO2 of 100 with a lactate of 2.0. Sodium 136, potassium 5.5, chloride 97, bicarbonate 17, BUN 69, creatinine 5.1. CT scan of the brain is reviewed, and there is diffuse cerebral edema with evidence of uncal herniation. IMPRESSION: A 68-year-old with: 1. Hypoxemic respiratory failure. 2. Cardiogenic shock. 3. Anoxic encephalopathy. 4. Status post cardiopulmonary arrest with prolonged resuscitation. DISCUSSION: A 68-year-old with problems outlined above. He has diffuse cortical edema. He appears to have cortical brain , although he is not completely brain because he does have some spontaneous respiratory efforts. He is not going to survive this hospital stay. RECOMMENDATIONS: Agree with plans for compassionate extubation and comfort measures. The patient will not recover from this severe brain injury. cc: Juan M Ceja MD
[2019-06-05] MEDS ORDERED: TRANSDERM-SCOP TD ONE (18:02)
[2019-06-05] MEDS ORDERED: MORPHINE IV ONE (18:02)
[2019-06-05] MEDS ORDERED: MORPHINE IV PRN (18:02)
[2019-06-05] MEDS ORDERED: ATROPINE 1 % OPHTH SOLN SL PRN (18:02)
[2019-06-05] MEDS ORDERED: ATIVAN IV PRN (18:02)
[2019-06-05 18:16] LABS: UR AMPHETAMINES QUAL NONE DETECTED (NONE DETECT); UR BARBITUATES QUAL NONE DETECTED (NONE DETECT); UR BENZODIAZEPIN QUAL NONE DETECTED (NONE DETECT); UR CANNABINOIDS QUAL NONE DETECTED (NONE DETECT); UR COCAINE QUAL NONE DETECTED (NONE DETECT); UR METHADONE QUAL NONE DETECTED (NONE DETECT); UR OPIATES QUAL NONE DETECTED (NONE DETECT); UR OXYCODONE QUAL NONE DETECTED (NONE DETECT); UR PCP QUAL NONE DETECTED (NONE DETECT)
[2019-06-05 19:04] VITALS: BP 55/38
[2019-06-06] MEDS ORDERED: VANCOMYCIN 750 MG in NS 250 ML IV SCH (00:30)
--- NOTE | 2019-06-06 12:45 | DISCHARGE SUMMARY ---
ADMISSION DATE: 06/04/2019 DISCHARGE DATE: 06/05/2019 DIAGNOSES: 1. Hypoxemic respiratory failure. 2. Cardiogenic shock. 3. Status post cardiopulmonary arrest with prolonged resuscitation. 4. Anoxic encephalopathy. 5. Brain by images and physical exam. 6. History of ischemic cardiomyopathy status post implantable defibrillator. 7. Chronic kidney disease status post right nephrectomy. CONSULTANTS: 1. Dr. Karan Espinoza, Cardiology. 2. Dr. Juan M Ceja, Pulmonology. 3. Dr. Nele Moctezuma, Neurology. 4. Dr. Zeke Hoang, Nephrology. HOSPITAL COURSE: Mr. Reed presented to the emergency room with a complaint of chest pain. He quickly lost his pulse, was coded, and intubated. Mr. Reed presented to the emergency room complaining of chest pains. He quickly developed cardiopulmonary arrest in the emergency room, and was subsequently intubated. He had a prolonged resuscitation according to the chart that was approximately 58 minutes. He was then placed in. He was evaluated by Cardiology, Pulmonology, Nephrology and Neurology. It was felt that due to his prolonged resuscitation that no interventions would benefit the patient. He continued to decline. CT scan on 06/04 was read as brain , worsening severe diffuse cerebral edema, worsening in hypodensity of the domingo matter of the basal ganglia, bilateral uncal herniation with diffuse sinusitis. Family after receiving reports from the subspecialties, family decided to proceed with compassionate extubation and comfort measures. At 18:45, he was extubated to nasal cannula, and at 19:29 he was pronounced . The patient was tested for COVID-19 infection, results returned negative for COVID-19. Dictated by ELIZABETH Moctezuma for Karlos Cadena MD cc: ELIZABETH Moctezuma MD [facility] [place] [facility]
== END 2019-06-05 19:29 | disposition expired | DRG 208 ==
LOC: ED 16:29 → SUATTDRO 06-04 02:51 → ICU 06-04 02:51
PROVIDERS: ATTEND Internal Medicine